=== PATIENT | female | born 1965 | race Caucasian/White ===

== ENCOUNTER 2020-04-02 22:48 | Inpatient (IN) ==
[2020-04-02] MEDS ORDERED: SODIUM CHLORIDE 0.9% 1000ML 1,000 ML IV ONE ×2 (23:05→23:48)
--- NOTE | 2020-04-02 23:10 | Emergency Department Note ---
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 Was feeling better this evening other than continued diarrhea when she had syncopal event. Notes nausea and weakness after passing out. Lip laceration noted and some ri ght foot pain though no other overt injuries. She is hypotensive (SBP 60s) on arrival and recheck. Given 2 L NSS bolus with vast improvement in BP. With recent surgery and hospitalization, along with travel and her grandfather having PEs, dimer obtained despite no sob/cp. Dimer positive thus CT PE of chest done along with Head (for syncope) and Abdomen/Pelvis (hypotensive with recent viscous perforation). These imaging studies fortunately unremarkable. Labs with hypokalemia as well which repletion started in ED. Lip laceration mild and right along norma boarder which was amenable to dermabond (sutures would have caused more scarring than just using dermabond). Inner lip laceration is not through and through and does not require sutures. No jaw pain nor evidence of need for facial imaging at this time. Right foot xrays without evidence acute fracture. Suspect syncope secondary to dehydration from diarrhea she has been having which likely is also cause of HypoK. She does look much better but in setting of significant hypotension on arrival and lab findings I do feel she would benefit from monitoring further in hospital. Patient does have some anterior t wave inversions and st depressions new from recent EKG as well which I suspect may have been hypotensive related as no chest pain. Initial trop at this time negative.. Prior Medical Record and Triage/Nursing Notes reviewed by Me Additional history obtained from chart Differentials:Vasovagal event, dehydration, infection, hypoglycemia, electrolyte abnormalities, cardiac sources, intracerebral event, pulmonary embolism, seizure, toxicologic, neurologic, as well as other pathologies. Vital Signs: reviewed and remarkable for hypotension Interventions: Saline Lock, NSS bolus 2L IV, KCl 20meq IV Labs:Reviewed and remarkable for hypoK, elevated Dimer Imaging:X ray results are stated below per my interpretation: Chest: 1 view: No infiltrate, no effusion, normal cardiac border. Foot Right: 3 view: recalcification of previous fractures with pin mid/distal 1st metatarsal. Ankle hardware intact. No over fracture nor dislocation [facility] Radiologist interpretation reviewed by me: ct head wo con, ct chest pe study, ct a/p w IV con: No acute findings. Post op finding noted. No PE. EKG:Per My Interpretation: Indication Syncope: NSR 87 bpm, qtc 428. There are new ST depressions/T wave inversions anteriorly compared to last week EKG. No Ectopy. Compared to EKG 03/27/20. Cardiac/Tele Monitoring: Cardiac Monitoring: An Order was placed for continuous cardiac monitoring. The monitor shows a rate of 80 with a normal sinus rhythm. Consults:Dr Brijesh MYLES Hospitalist Plan: Disposition:Hospitalization. Condition: Good Prescriptions:none PDMP: n/a History of Present Illness:54 yr old female arrives for evaluation of syncope. Patient with gastric sleeve done on 02/21/20 [facility]. Was having significant nausea, vomiting, diarrhea 1 week and seen in ED here, given IV fluids with improvement and discharged to home. Was seen at [place] next day and briefly hospitalized for IV abx due to perforation, concern colon as source rather than surgical site. She notes she has been on Augmentin since doing well. Has been having daily diarrhea but no nausea, vomiting, nor other symptoms. This evening she got up from chair and as she was walking she passed out. Struck lip on fall. Notes nausea after this. Currently she feels weak without specific symptoms. Notes some mild nausea, exhaustion, and abdominal soreness. Denies fevers, chills, cough, vomiting, headache, neck pain, chest pain, shortness of breath, dyspnea, pleuritic pain, leg swelling, calf pain. No medications taken prior to arrival. Admits lightheaded with standing. Better with sitting. ROS: See above HPI for pertinent positives & negatives. A total of 10 systems reviewed and were otherwise negative. Past Medical History:Depression, GERD, migraine Past Surgical History:Gastric Band surgery Family History:Grandfather PE Social History:From [place] currently living with parents to care for them, no drugs, no smoking Home Medications:Escitalopram, oxcarbazepine, pantoprazole, topiramate Allergies:Depakote Vitals:Blood Pressure: 109/68, Pulse 81, RR 18, T 35.9C, O2 99% on RA Physical Exam: GENERAL: Patient is tired appearing and in mild distress. HEAD: AT/NC FACE: Lower lip laceration along vermilion border about 1cm with small area just beyond supericial. Inner left lower lip laceration without through-through lac EYES: No scleral icterus, unremarkable pupils. ENT: Mucous membranes moist, no nasal congestion. NECK: No masses appreciated, nomeningismus, trachea is midline. No cervical TTP RESPIRATORY: No dyspnea. Clear to auscultation and equal bilaterally. No wheeze, no rhonchi. CARDIOVASCULAR: Regular rate and rhythm.No murmurs, rubs, gallops appreciated. GASTROINTESTINAL: Abdomen soft, non-tender, no peritonitis.Bowel sounds positive.No masses appreciated. BACK: No midline tenderness, no CVA tenderness EXTREMITIES: Normal motion all extremities, no cyanosis, no edema. NEUROLOGIC: Alert and oriented, no acute motor or sensory deficits, no focal weakness, cranial nerves grossly intact. SKIN: No rash, no jaundice, no diaphoresis. PSYCH: Appropriate GCS: 15 ED Course: Times/Reassessments: Much improved with IV fluids Procedures: Laceration Repair: Location: left lower lip norma boarder Complexity: Simple Length: 1.5 cm Verbal consent was obtained after the risks and benefits were explained, including but not limited to bleeding, scarring, infection, pain, and bone/joint/nerve damage. At this time, the risks of the procedure are less than the risks of NOT performing the procedure. A time out was taken and the correct patient and site identified. The skin was prepped with betadine. The wound was explored for foreign bodies and none found. Examination revealed no injury to deep structures such as tendons, bone, or significant blood vessels. Debridement was not performed. The wound edges were approximated using DERMABOND. Hemostasis and excellent approximation was achieved. Detailed wound care instructions and signs and symptoms of infection reviewed with the patient. No complications and the patient tolerated the procedure well. I personally performed the entire procedure. Critical Care: I have personally spent 30 minutes of critical care time in the direct management of this patient. Acute hypotension with syncope requiring fluid resus. This was a life/limb threatening event. This 30 minutes is in excess of all separately billable procedures. Maco Ashford MD Past Med/Surg History Medical History No pertinent past medical history Social History Smoking Status: Never smoker Preferred Language: Cypriot Feels Safe at Home: Yes Allergies Allergies Allergy/AdvReac Type Severity Reaction Status Date / Time divalproex sodium Allergy Hives Unverified 03/27/20 17:38 [From Depakote] Home Meds Home Medications Medication Instructions Recorded Confirmed calcium carbonate-vitamin D3 1 tab PO BID 03/27/20 04/02/20 [Calcium + D] escitalopram oxalate 20 mg PO HS 03/27/20 04/02/20 multivitamin [Multiple Vitamin] 1 tab PO DAILY 03/27/20 04/02/20 oxcarbazepine 450 mg PO BID 03/27/20 04/02/20 pantoprazole 40 mg PO DAILY 03/27/20 04/02/20 topiramate 400 mg PO HS 03/27/20 04/02/20 cyanocobalamin (vitamin B-12) 1,000 mcg PO DAILY 04/02/20 04/02/20 [Vitamin B-12] Results & Data (ED) Vital Signs Vital Signs - 24 hr 04/02/20 22:50 04/02/20 23:00 04/02/20 23:09 Temperature 35.9 C L Temperature Source Temporal Artery Scan Pulse Rate 100 H 83 72 Pulse Rate from SpO2 Sensor 84 73 Respiratory Rate 20 18 19 Respiratory Effort / Characteristics Non-Labored Spontaneous Respiratory Depth Normal Respiratory Pattern Regular Blood Pressure 67/50 L 88/64 L 84/63 L Blood Pressure [Right Arm] 88/64 L Blood Pressure Mean 55 77 69 Blood Pressure Mean [Right Arm] 72 Blood Pressure Position Sitting Blood Pressure Position [Right Arm] Lying Pulse Oximetry 98 98 97 Oxygen Delivery Method Room Air Sepsis Recent Fever Within 48 Hours No Sepsis New/Unexplained Change in Mental Status No Sepsis Action Taken by Nursing Physician Notified 04/02/20 23:15 04/02/20 23:30 04/02/20 23:45 Temperature Temperature Source Pulse Rate 75 71 69 Pulse Rate from SpO2 Sensor 70 71 72 Respiratory Rate 15 16 16 Respiratory Effort / Characteristics Respiratory Depth Respiratory Pattern Blood Pressure 92/61 L 105/72 103/65 Blood Pressure [Right Arm] Blood Pressure Mean 70 82 68 Blood Pressure Mean [Right Arm] Blood Pressure Position Blood Pressure Position [Right Arm] Pulse Oximetry 96 99 99 Oxygen Delivery Method Sepsis Recent Fever Within 48 Hours Sepsis New/Unexplained Change in Mental Status Sepsis Action Taken by Nursing 04/03/20 00:00 04/03/20 00:27 04/03/20 00:29 Temperature Temperature Source Pulse Rate 80 Pulse Rate from SpO2 Sensor 81 Respiratory Rate 51 H 12 Respiratory Effort / Characteristics Respiratory Depth Respiratory Pattern Blood Pressure 124/75 104/75 Blood Pressure [Right Arm] Blood Pressure Mean 94 83 Blood Pressure Mean [Right Arm] Blood Pressure Position Blood Pressure Position [Right Arm] Pulse Oximetry 99 Oxygen Delivery Method Sepsis Recent Fever Within 48 Hours Sepsis New/Unexplained Change in Mental Status Sepsis Action Taken by Nursing 04/03/20 00:30 04/03/20 00:46 04/03/20 01:15 Temperature Temperature Source Pulse Rate 80 72 81 Pulse Rate from SpO2 Sensor 81 72 81 Respiratory Rate 20 16 16 Respiratory Effort / Characteristics Respiratory Depth Respiratory Pattern Blood Pressure 109/63 111/73 Blood Pressure [Right Arm] Blood Pressure Mean 70 87 Blood Pressure Mean [Right Arm] Blood Pressure Position Blood Pressure Position [Right Arm] Pulse Oximetry 99 98 99 Oxygen Delivery Method Sepsis Recent Fever Within 48 Hours Sepsis New/Unexplained Change in Mental Status Sepsis Action Taken by Nursing 04/03/20 01:47 04/03/20 02:00 04/03/20 02:15 Temperature Temperature Source Pulse Rate Pulse Rate from SpO2 Sensor 73 75 73 Respiratory Rate Respiratory Effort / Characteristics Respiratory Depth Respiratory Pattern Blood Pressure 107/61 104/68 104/72 Blood Pressure [Right Arm] Blood Pressure Mean 62 82 81 Blood Pressure Mean [Right Arm] Blood Pressure Position Blood Pressure Position [Right Arm] Pulse Oximetry 99 98 99 Oxygen Delivery Method Sepsis Recent Fever Within 48 Hours Sepsis New/Unexplained Change in Mental Status Sepsis Action Taken by Nursing Laboratory Data Result diagrams: 04/02/20 23:09 04/02/20 23:09 Lab Results 04/02/20 04/02/20 04/02/20 Range/Units 23:09 23:09 23:09 WBC 11.52 H (4.8-10.8) K/uL RBC 4.57 (4.2-5.4) M/uL Hgb 13.8 (12.0-16.0) g/dL Hct 39.5 (37-47) % MCV 86.4 (80-100) fL MCH 30.2 (25-34) pg MCHC 34.9 (32-36) g/dL RDW Std Deviation 41.9 (36.4-46.3) fL RDW Coeff of Jasbir 13.3 (11.5-14.5) % Plt Count 234 (130-400) K/uL MPV 9.2 (7.4-10.4) fL Neutrophils % (Manual) 35.7 % Lymphocytes % (Manual) 43.4 % Monocytes % (Manual) 2.6 % Neutrophils # (Manual) 4.11 (1.4-6.5) K/uL Total Absolute Neuts 4.11 (1.4-6.5) K/uL Lymphocytes # (Manual) 5.00 H (1.2-3.4) K/uL Total Abs Lymphocytes 7.11 H (1.2-3.4) K/uL Monocytes # (Manual) 0.30 (0.11-0.59) K/uL Large Granular Lymphs 18.3 % # Lrg Granular Lymphs 2.11 K/uL RBC Morphology Unremarkable D-Dimer 1510 H* (0-500) ug/L FEU Sodium (136-145) mmol/L Potassium (3.5-5.1) mmol/L Chloride (98-107) mmol/L Carbon Dioxide (21-32) mmol/L Anion Gap (3-11) BUN (7-18) mg/dl Creatinine (0.6-1.2) mg/dl Est Cr Clr Drug Dosing ml/min Est GFR ( Amer) Est GFR (Non-Af Amer) BUN/Creatinine Ratio (10-20) Glucose (70-99) mg/dl Lactate 2.5 H* (0.4-2.0) mmol/L Calcium (8.5-10.1) mg/dl Magnesium (1.8-2.4) mg/dl Total Bilirubin (0.2-1) mg/dl Direct Bilirubin (0-0.2) mg/dl AST (15-37) U/L ALT (12-78) U/L Alkaline Phosphatase (45-117) U/L Troponin I (0-0.045) ng/ml Total Protein (6.4-8.2) gm/dl Albumin (3.4-5.0) gm/dl Lipase (73-393) U/L Urine Color Urine Appearance (Clear) Urine pH (4.5-7.5) Ur Specific [place] (1.000-1.030) Urine Protein (Negative) Urine Glucose (UA) (Negative) Urine Ketones (Negative) Urine Blood (Negative) Urine Nitrite (Negative) Urine Bilirubin (Negative) Urine Urobilinogen (Negative) Ur Leukocyte Esterase (Negative) COVID-19 Eval Order SARS-CoV-2, RNA, NAAT (NEGATIVE) 04/02/20 04/03/20 04/03/20 Range/Units 23:09 00:00 00:00 WBC (4.8-10.8) K/uL RBC (4.2-5.4) M/uL Hgb (12.0-16.0) g/dL Hct (37-47) % MCV (80-100) fL MCH (25-34) pg MCHC (32-36) g/dL RDW Std Deviation (36.4-46.3) fL RDW Coeff of Jasbir (11.5-14.5) % Plt Count (130-400) K/uL MPV (7.4-10.4) fL Neutrophils % (Manual) % Lymphocytes % (Manual) % Monocytes % (Manual) % Neutrophils # (Manual) (1.4-6.5) K/uL Total Absolute Neuts (1.4-6.5) K/uL Lymphocytes # (Manual) (1.2-3.4) K/uL Total Abs Lymphocytes (1.2-3.4) K/uL Monocytes # (Manual) (0.11-0.59) K/uL Large Granular Lymphs % # Lrg Granular Lymphs K/uL RBC Morphology D-Dimer (0-500) ug/L FEU Sodium 143 (136-145) mmol/L Potassium 2.9 L (3.5-5.1) mmol/L Chloride 110 H (98-107) mmol/L Carbon Dioxide 21 (21-32) mmol/L Anion Gap 11.0 (3-11) BUN 17 (7-18) mg/dl Creatinine 0.90 (0.6-1.2) mg/dl Est Cr Clr Drug Dosing 78.6 ml/min Est GFR ( Amer) 84.6 Est GFR (Non-Af Amer) 73.0 BUN/Creatinine Ratio 18.3 (10-20) Glucose 147 H (70-99) mg/dl Lactate (0.4-2.0) mmol/L Calcium 9.2 (8.5-10.1) mg/dl Magnesium 2.0 (1.8-2.4) mg/dl Total Bilirubin 0.4 (0.2-1) mg/dl Direct Bilirubin 0.1 (0-0.2) mg/dl AST 42 H (15-37) U/L ALT 51 (12-78) U/L Alkaline Phosphatase 111 (45-117) U/L Troponin I < 0.015 (0-0.045) ng/ml Total Protein 6.8 (6.4-8.2) gm/dl Albumin 3.6 (3.4-5.0) gm/dl Lipase 164 (73-393) U/L Urine Color Urine Appearance (Clear) Urine pH (4.5-7.5) Ur Specific [place] (1.000-1.030) Urine Protein (Negative) Urine Glucose (UA) (Negative) Urine Ketones (Negative) Urine Blood (Negative) Urine Nitrite (Negative) Urine Bilirubin (Negative) Urine Urobilinogen (Negative) Ur Leukocyte Esterase (Negative) COVID-19 Eval Order Covid19 IDNow atMKYC SARS-CoV-2, RNA, NAAT NEGATIVE (NEGATIVE) 04/03/20 04/03/20 Range/Units 00:52 01:50 WBC (4.8-10.8) K/uL RBC (4.2-5.4) M/uL Hgb (12.0-16.0) g/dL Hct (37-47) % MCV (80-100) fL MCH (25-34) pg MCHC (32-36) g/dL RDW Std Deviation (36.4-46.3) fL RDW Coeff of Jasbir (11.5-14.5) % Plt Count (130-400) K/uL MPV (7.4-10.4) fL Neutrophils % (Manual) % Lymphocytes % (Manual) % Monocytes % (Manual) % Neutrophils # (Manual) (1.4-6.5) K/uL Total Absolute Neuts (1.4-6.5) K/uL Lymphocytes # (Manual) (1.2-3.4) K/uL Total Abs Lymphocytes (1.2-3.4) K/uL Monocytes # (Manual) (0.11-0.59) K/uL Large Granular Lymphs % # Lrg Granular Lymphs K/uL RBC Morphology D-Dimer (0-500) ug/L FEU Sodium (136-145) mmol/L Potassium (3.5-5.1) mmol/L Chloride (98-107) mmol/L Carbon Dioxide (21-32) mmol/L Anion Gap (3-11) BUN (7-18) mg/dl Creatinine (0.6-1.2) mg/dl Est Cr Clr Drug Dosing ml/min Est GFR ( Amer) Est GFR (Non-Af Amer) BUN/Creatinine Ratio (10-20) Glucose (70-99) mg/dl Lactate 1.6 (0.4-2.0) mmol/L Calcium (8.5-10.1) mg/dl Magnesium (1.8-2.4) mg/dl Total Bilirubin (0.2-1) mg/dl Direct Bilirubin (0-0.2) mg/dl AST (15-37) U/L ALT (12-78) U/L Alkaline Phosphatase (45-117) U/L Troponin I (0-0.045) ng/ml Total Protein (6.4-8.2) gm/dl Albumin (3.4-5.0) gm/dl Lipase (73-393) U/L Urine Color Yellow Urine Appearance Clear (Clear) Urine pH 7.0 (4.5-7.5) Ur Specific [place] 1.041 H (1.000-1.030) Urine Protein Negative (Negative) Urine Glucose (UA) Negative (Negative) Urine Ketones Trace H (Negative) Urine Blood Negative (Negative) Urine Nitrite Negative (Negative) Urine Bilirubin Negative (Negative) Urine Urobilinogen Negative (Negative) Ur Leukocyte Esterase Negative (Negative) COVID-19 Eval Order SARS-CoV-2, RNA, NAAT (NEGATIVE) Administered Medications Sodium Chloride (Nss 1000ml) 1,000 mls @ 125 mls/hr IV .Q8H JOSE ANTONIO Stop: 05/03/20 00:59 Last Admin: 04/03/20 01:50 Dose: 125 mls/hr Documented by: [id number] Discontinued Medications Sodium Chloride (Nss 1000ml) 1,000 mls @ 999 mls/hr IV .Q1H1M ONE Stop: 04/03/20 00:05 Last Infusion: 04/03/20 00:53 Dose: 0 mls/hr Documented by: [id number] Admin: 04/02/20 23:15 Dose: 999 mls/hr Documented by: [id number] Sodium Chloride (Nss 1000ml) 1,000 mls @ 999 mls/hr IV .Q1H1M ONE Stop: 04/03/20 00:48 Last Infusion: 04/03/20 00:59 Dose: 0 mls/hr Documented by: [id number] Admin: 04/02/20 23:51 Dose: 999 mls/hr Documented by: [id number] Potassium Chloride (K Gomez / Wtr) 10 meq in 100 mls @ 100 mls/hr IV Q1H [facility] Stop: 04/03/20 02:59 Last Admin: 04/03/20 01:50 Dose: 100 mls/hr Documented by: [id number] Ioversol (Optiray 320 125ml) 125 ml IV ONCE ONE Stop: 04/03/20 00:43 Last Admin: 04/03/20 00:42 Dose: 118 ml Documented by: [id number] Discharge Plan Visit Data Chief Complaint: Syncope Stated Complaint: PASSED OUT-CUT [id number] FOOT PAIN ED Provider: Maco Ashford Discharge Problem: Acute hypotension, Elevated d-dimer, Syncope and collapse, Laceration of lip, Acute dehydration, Acute hypokalemia, Abnormal ECG Forms Stand Alone Forms: [facility] Prescriptions Prescriptions: No Action escitalopram oxalate 20 mg tablet 20 mg PO HS RF: 0 topiramate 200 mg tablet 400 mg PO HS RF: 0 multivitamin [Multiple Vitamin] Tablet 1 tab PO DAILY RF: 0 calcium carbonate-vitamin D3 [Calcium + D] 600 mg(1,500mg) -200 unit Tablet 1 tab PO BID RF: 0 pantoprazole 40 mg tablet,delayed release (DR/EC) 40 mg PO DAILY RF: 0 oxcarbazepine 150 mg tablet 450 mg PO BID RF: 0 cyanocobalamin (vitamin B-12) [Vitamin B-12] 1,000 mcg Tablet 1,000 mcg PO DAILY RF: 0
[2020-04-02 23:19] LABS: Hematocrit (blood only) 39.5 % (37-47); Hemoglobin 13.8 g/dL (12.0-16.0); Mean Corpuscular Hemoglobin 30.2 pg (25-34); Mean Corpuscular Hgb Conc 34.9 g/dL (32-36); Mean Corpuscular Volume 86.4 fL (80-100); Mean Platelet Volume 9.2 fL (7.4-10.4); Platelet Count 234 K/uL (130-400); RDW Coefficient of Variation 13.3 % (11.5-14.5); RDW Standard Deviation 41.9 fL (36.4-46.3); Red Blood Count 4.57 M/uL (4.2-5.4); White Blood Count 11.52 K/uL (4.8-10.8)
[2020-04-02 23:39] LABS: Alanine Aminotransferase 51 U/L (12-78); Albumin Level 3.6 gm/dl (3.4-5.0); Aspartate Aminotransferase 42 U/L (15-37); BUN Creatinine Ratio 18.3 (10-20); Bilirubin Direct 0.1 mg/dl (0-0.2); Blood Urea Nitrogen 17 mg/dl (7-18); Calcium 9.2 mg/dl (8.5-10.1); Carbon Dioxide 21 mmol/L (21-32); Chloride 110 mmol/L (98-107); Creatinine Clr Calc Pharmacy 78.6 ml/min; Est GFR (African American) 84.6; Glucose 147 mg/dl (70-99); Lipase 164 U/L (73-393); Potassium 2.9 mmol/L (3.5-5.1); Sodium 143 mmol/L (136-145)
[2020-04-02 23:44] LABS: Alkaline Phosphatase 111 U/L (45-117); Bilirubin,Total 0.4 mg/dl (0.2-1); Total Protein 6.8 gm/dl (6.4-8.2); Troponin I < 0.015 ng/ml (0-0.045)
[2020-04-02 23:47] LABS: ALC (manual) 7.11 K/uL (1.2-3.4); ANC (manual) 4.11 K/uL (1.4-6.5); Large Granular Lymph # (manua 2.11 K/uL; Large Granular Lymph % (manual) 18.3 %; Lymphocytes % (manual) 43.4 %; Monocytes % (manual) 2.6 %; Neutrophils # (manual) 4.11 K/uL (1.4-6.5); Neutrophils % (manual) 35.7 %; RBC Morphology Unremarkable
[2020-04-02 23:48] LABS: D Dimer 1510 ug/L FEU (0-500)
[2020-04-03] MEDS ORDERED: OPTIRAY 320 125ml IV ONE (00:42)
[2020-04-03] MEDS: POTASSIUM CHLORIDE / WTR 10 MEQ/100 ML PLCT IV SCH ×2 (01:50→03:49)
[2020-04-03] MEDS: SODIUM CHLORIDE 0.9% 1000ML 1,000 ML IV SCH ×3 (01:50→19:02)
[2020-04-03 02:27] LABS: Appearance Urine Clear (Clear); Bilirubin Urine Negative (Negative); Blood Urine Negative (Negative); Color Urine Yellow; Glucose Urine UA Negative (Negative); Ketones Urine Trace (Negative); Leukocyte Esterase Urine Negative (Negative); Nitrite Urine Negative (Negative); Protein Urine Negative (Negative); Specific Gravity Urine 1.041 (1.000-1.030); Urobilinogen Urine Negative (Negative)
--- NOTE | 2020-04-03 03:11 | History & Physical Report ---
Date of Service April 03, 2020 Assessment & Plan (1) Syncope: Mrs. Rhodes is a 54 yo woman who underwent laparoscopic sleeve gastrectomy on 02/21/20 at [facility], who was admitted with a syncopal episode. - as for the etiology of syncope: cardiogenic etiology seems unlikely as setting was not consistent with exertion; no associated CP or palpations. EKG on admission showing NRS at 84 bpm. - neurogenic very rare, no report of seizure like activity - reflex mediated seems unlikely given lack of a prodrome;patient was brushing teeth at the time (no urinating or defecating), no cough - medication induced seems unlikely has patient is not on any anti-hypertensive; no anti-anginals. EKG without QTc prolongation. - hypotension/orthostasis is possibility, as patient reported daily diarrhea (volume loss); BP soft on arrival at 104/72 - patient given 1 liter of IV fluid in ED. - continuos manager cardiac cath (to assess for any potential intermittent arrhythmia) - obtain orthostatic vitals (2) Diarrhea: - patient reports daily watery diarrhea since 03/27/20 - stool reportedly tested negative for C.diff when recently admitted at [facility] - initial thought of being induced by IV contrast, however it has persisted days beyond contrast intake - suspect secondary to early gastric dumping syndrome (osmotic fluid shifts into small bowel) - continue to monitor Patient reports that this is slowly improving (3) Hypokalemia: - K at 2.7 on admission - mag level normal - patient given 10meQ IV in the ED - ordered additional 40meQ IV and 40 PO potassium chloride - repeat BMP ordered (4) Leukocytosis: - WBC elevated to 11 on admission with lymphocytosis - it was elevated to the same degree on 03/27/20 - secondary to physiology stress response vs. infection - CXR negative for acute consolidation; COVID 19 neg; A/p CT scan showing no evidence of abscess or fluid collection - patient is on Augmentin for presumed colonic microperforation (noted on CT scan 03/27/20). Continue Augmentin while inpatient (on day 3 of 14) - hemodynamically stable, SIRS criteria not met - trend CBC (5) Elevated d-dimer: - level elevated to 1510 on admission - Chest CTA negative for acute PE (per [facility]); official read pending - no further work up (6) GERD (gastroesophageal reflux disease): - continue home dose protonix (7) Depression: - continue home dose escitalopram (8) S/P gastric surgery: - s/p gastric sleeve on 02/21/20 at [facility] Diet: Bariatric DVT ppx: SCDs Dispo: Med/Surg with tele Code: full History of Present Illness Primary Care Provider: DIMITRIS Puentes Mrs. Rhodes is a 54 yo F who presented to the ED for evaluation after a syncopal episode. Of note, she recently underwent laparoscopic gastric sleeve procedure on 02/21/20 at [facility]. For the first 2.5 weeks after the surgery, she had no issues; she progressed through her bariatric diet well. Subsequently, she began to develop intermittent abdominal pain and nausea. On 03/27/20 she presented to the [facility] ED for evaluation of nausea/vomiting, and watery diarrhea. A CT scan of her abdomen and pelvis was obtained at this time, which showed gas in the colon, suspected to be from recent laparoscopic procedure vs. consistent with a microperforation. Patient improved with IV hydration and was sent home from the ED, directed to follow up with her bariatric surgeon. The very next day, 03/28/20 she traveled to [place] to see her bariatric surgeon, at which time she was briefly hospitalized for IV antibiotics (in the event the air visualized in the large bowel from CT scan performed here on 03/27/20 represented a perforation). She was discharged on 03/31/20 from [facility] with a two week course of Augmentin. Mrs. Rhodes reports that ever since she presented on 03/27/20 she has been having watery diarrhea on a daily basis. Her surgeon initially thought it was from the IV contrast she drank before her A/P CT scan on 03/27/20- however it has persisted long after its use. Mrs. Rhodes does say that her stool was tested for c.diff while admitted to [facility] this past week and returned negative. Prior to her admission during the early hours of 04/03/19, she was actually beginning to feel better. Her nausea and vomiting resolved, she was tolerating PO intake well. She was seated in a recliner after dinner - she stood up, walked to the bathroom, and attempted to brush her teeth. Mrs. Rhodes reports she must have passed out because her daughter found her lying on the bathroom floor. She does report feeling somewhat lightheaded as she walked down the blount to the bathroom, but she denies any chest pain, SOB, palpitations, or greying of vision preceding her fall. In fact, she does not remember falling - she just remembers waking up on the ground. She had a cut on her lip - she says she must have struck her face on her bathroom vanity when falling. She is not on a blood thinner. She is not on any blood pressure medications at this time - they were discontinued within the past month. She denied any associated cold symptoms, fever/chills. Patient is concerned about her R foot (and potential damage it may have sustained in her fall), as she had hardware placed during an operation this past summer. In the ED: patient was afebrile, HR normal at 81, BP soft at 104/72. WBC elevated mildly to 11 with lymphocytosis. Hgb normal. CMP notable for low K at 2.7. D-dimer was elevated to 1510. Lactate was elevated to 2.4 on arrival, cleared to 1.6. Lipase normal at 164. Trop undetectable. COVID 19 neg. EKG showing NSR at 84 bpm. CXR showing no acute process (official read pending). Head CT negative for acute bleed or fracture (official read pending). R foot XR ordered. A/P CT scan showing no abscess or fluid collection; expected pos- operative changes (official read pending). Chest CTA negative for acute PE (official read pending). She was given 10meQ potassium chloride and 1 liter of normal saline. Allergies Allergy/AdvReac Type Severity Reaction Status Date / Time divalproex sodium Allergy Hives Unverified 03/27/20 17:38 [From Depakote] Home Medications Medication Instructions Recorded Confirmed Type calcium carbonate-vitamin D3 1 tab PO BID 03/27/20 04/02/20 History [Calcium + D] escitalopram oxalate 20 mg PO HS 03/27/20 04/02/20 History multivitamin [Multiple Vitamin] 1 tab PO DAILY 03/27/20 04/02/20 History oxcarbazepine 450 mg PO BID 03/27/20 04/02/20 History pantoprazole 40 mg PO DAILY 03/27/20 04/02/20 History topiramate 400 mg PO HS 03/27/20 04/02/20 History cyanocobalamin (vitamin B-12) 1,000 mcg PO DAILY 04/02/20 04/02/20 History [Vitamin B-12] Past Med/Surg History Medical History (Updated 04/03/20 @ 03:40 by Linda Sandhu MD) No pertinent past medical history Surgical History (Updated 04/03/20 @ 04:27 by Elvi Coley DO) History of bariatric surgery Gastric Sleeve Social History Smoking Status: Never smoker Preferred Language: Polish Feels Safe at Home: Yes Review of Systems Cardiovascular: no chest pain, no dyspnea and no palpitations Gastrointestinal: + diarrhea/loose stools; no abdominal pain, no nausea and no vomiting Neurologic: + headache(s) Physical Exam Constitutional: WD/WN, vitals as above cooperative and comfortable Eyes: + anicteric sclerae ENMT: external ear and nose normal, oropharynx normal Neck: normal visual inspection and trachea midline Respiratory: normal respiratory effort, lungs clear to auscultation no respiratory distress Auscultation: no crackles, no rales, no rhonchi and no wheezes Cardiovascular: RRR, no murmur, no edema Heart Sounds: normal S1 and normal S2 Extremities: no pedal edema Gastrointestinal (Abdomen): normal bowel sounds, soft, nontender, no hepatosplenomegaly Inspection/Auscultation: + abdominal surgical scar (consistent with recent laproscopic surgery; well healed) Skin: no rashes, warm and dry Psychiatric: A+Ox3, euthymic affect Results & Data Results & Data ([facility]) Vital Signs (Past 12 Hours) Vital Signs Temp Pulse Resp BP BP Pulse Ox 04/03/20 02:15 104/72 99 04/03/20 02:00 104/68 98 04/03/20 01:47 107/61 99 04/03/20 01:15 81 16 111/73 99 04/03/20 00:46 72 16 109/63 98 04/03/20 00:30 80 20 99 04/03/20 00:29 80 12 104/75 99 04/03/20 00:27 51 H 01/18/21 00:00 124/75 04/02/20 23:45 69 16 103/65 99 04/02/20 23:30 71 16 105/72 99 04/02/20 23:15 75 15 92/61 L 96 04/02/20 23:09 72 19 84/63 L 97 04/02/20 23:00 83 18 88/64 L 88/64 L 98 04/02/20 22:50 35.9 C L 100 H 20 67/50 L 98 Laboratory Results Lab Results 04/02/20 04/02/20 04/02/20 Range/Units 23:09 23:09 23:09 WBC 11.52 H (4.8-10.8) K/uL RBC 4.57 (4.2-5.4) M/uL Hgb 13.8 (12.0-16.0) g/dL Hct 39.5 (37-47) % MCV 86.4 (80-100) fL MCH 30.2 (25-34) pg MCHC 34.9 (32-36) g/dL RDW Std Deviation 41.9 (36.4-46.3) fL RDW Coeff of Jasbir 13.3 (11.5-14.5) % Plt Count 234 (130-400) K/uL MPV 9.2 (7.4-10.4) fL Neutrophils % (Manual) 35.7 % Lymphocytes % (Manual) 43.4 % Monocytes % (Manual) 2.6 % Neutrophils # (Manual) 4.11 (1.4-6.5) K/uL Total Absolute Neuts 4.11 (1.4-6.5) K/uL Lymphocytes # (Manual) 5.00 H (1.2-3.4) K/uL Total Abs Lymphocytes 7.11 H (1.2-3.4) K/uL Monocytes # (Manual) 0.30 (0.11-0.59) K/uL Large Granular Lymphs 18.3 % # Lrg Granular Lymphs 2.11 K/uL RBC Morphology Unremarkable D-Dimer 1510 H* (0-500) ug/L FEU Sodium (136-145) mmol/L Potassium (3.5-5.1) mmol/L Chloride (98-107) mmol/L Carbon Dioxide (21-32) mmol/L Anion Gap (3-11) BUN (7-18) mg/dl Creatinine (0.6-1.2) mg/dl Est Cr Clr Drug Dosing ml/min Est GFR ( Amer) Est GFR (Non-Af Amer) BUN/Creatinine Ratio (10-20) Glucose (70-99) mg/dl Lactate 2.5 H* (0.4-2.0) mmol/L Calcium (8.5-10.1) mg/dl Magnesium (1.8-2.4) mg/dl Total Bilirubin (0.2-1) mg/dl Direct Bilirubin (0-0.2) mg/dl AST (15-37) U/L ALT (12-78) U/L Alkaline Phosphatase (45-117) U/L Troponin I (0-0.045) ng/ml Total Protein (6.4-8.2) gm/dl Albumin (3.4-5.0) gm/dl Lipase (73-393) U/L Urine Color Urine Appearance (Clear) Urine pH (4.5-7.5) Ur Specific [place] (1.000-1.030) Urine Protein (Negative) Urine Glucose (UA) (Negative) Urine Ketones (Negative) Urine Blood (Negative) Urine Nitrite (Negative) Urine Bilirubin (Negative) Urine Urobilinogen (Negative) Ur Leukocyte Esterase (Negative) COVID-19 Eval Order SARS-CoV-2, RNA, NAAT (NEGATIVE) 04/02/20 04/03/20 04/03/20 Range/Units 23:09 00:00 00:00 WBC (4.8-10.8) K/uL RBC (4.2-5.4) M/uL Hgb (12.0-16.0) g/dL Hct (37-47) % MCV (80-100) fL MCH (25-34) pg MCHC (32-36) g/dL RDW Std Deviation (36.4-46.3) fL RDW Coeff of Jasbir (11.5-14.5) % Plt Count (130-400) K/uL MPV (7.4-10.4) fL Neutrophils % (Manual) % Lymphocytes % (Manual) % Monocytes % (Manual) % Neutrophils # (Manual) (1.4-6.5) K/uL Total Absolute Neuts (1.4-6.5) K/uL Lymphocytes # (Manual) (1.2-3.4) K/uL Total Abs Lymphocytes (1.2-3.4) K/uL Monocytes # (Manual) (0.11-0.59) K/uL Large Granular Lymphs % # Lrg Granular Lymphs K/uL RBC Morphology D-Dimer (0-500) ug/L FEU Sodium 143 (136-145) mmol/L Potassium 2.9 L (3.5-5.1) mmol/L Chloride 110 H (98-107) mmol/L Carbon Dioxide 21 (21-32) mmol/L Anion Gap 11.0 (3-11) BUN 17 (7-18) mg/dl Creatinine 0.90 (0.6-1.2) mg/dl Est Cr Clr Drug Dosing 78.6 ml/min Est GFR ( Amer) 84.6 Est GFR (Non-Af Amer) 73.0 BUN/Creatinine Ratio 18.3 (10-20) Glucose 147 H (70-99) mg/dl Lactate (0.4-2.0) mmol/L Calcium 9.2 (8.5-10.1) mg/dl Magnesium 2.0 (1.8-2.4) mg/dl Total Bilirubin 0.4 (0.2-1) mg/dl Direct Bilirubin 0.1 (0-0.2) mg/dl AST 42 H (15-37) U/L ALT 51 (12-78) U/L Alkaline Phosphatase 111 (45-117) U/L Troponin I < 0.015 (0-0.045) ng/ml Total Protein 6.8 (6.4-8.2) gm/dl Albumin 3.6 (3.4-5.0) gm/dl Lipase 164 (73-393) U/L Urine Color Urine Appearance (Clear) Urine pH (4.5-7.5) Ur Specific [place] (1.000-1.030) Urine Protein (Negative) Urine Glucose (UA) (Negative) Urine Ketones (Negative) Urine Blood (Negative) Urine Nitrite (Negative) Urine Bilirubin (Negative) Urine Urobilinogen (Negative) Ur Leukocyte Esterase (Negative) COVID-19 Eval Order Covid19 [facility]Now [facility] SARS-CoV-2, RNA, NAAT NEGATIVE (NEGATIVE) 04/03/20 04/03/20 Range/Units 00:52 01:50 WBC (4.8-10.8) K/uL RBC (4.2-5.4) M/uL Hgb (12.0-16.0) g/dL Hct (37-47) % MCV (80-100) fL MCH (25-34) pg MCHC (32-36) g/dL RDW Std Deviation (36.4-46.3) fL RDW Coeff of Jasbir (11.5-14.5) % Plt Count (130-400) K/uL MPV (7.4-10.4) fL Neutrophils % (Manual) % Lymphocytes % (Manual) % Monocytes % (Manual) % Neutrophils # (Manual) (1.4-6.5) K/uL Total Absolute Neuts (1.4-6.5) K/uL Lymphocytes # (Manual) (1.2-3.4) K/uL Total Abs Lymphocytes (1.2-3.4) K/uL Monocytes # (Manual) (0.11-0.59) K/uL Large Granular Lymphs % # Lrg Granular Lymphs K/uL RBC Morphology D-Dimer (0-500) ug/L FEU Sodium (136-145) mmol/L Potassium (3.5-5.1) mmol/L Chloride (98-107) mmol/L Carbon Dioxide (21-32) mmol/L Anion Gap (3-11) BUN (7-18) mg/dl Creatinine (0.6-1.2) mg/dl Est Cr Clr Drug Dosing ml/min Est GFR ( Amer) Est GFR (Non-Af Amer) BUN/Creatinine Ratio (10-20) Glucose (70-99) mg/dl Lactate 1.6 (0.4-2.0) mmol/L Calcium (8.5-10.1) mg/dl Magnesium (1.8-2.4) mg/dl Total Bilirubin (0.2-1) mg/dl Direct Bilirubin (0-0.2) mg/dl AST (15-37) U/L ALT (12-78) U/L Alkaline Phosphatase (45-117) U/L Troponin I (0-0.045) ng/ml Total Protein (6.4-8.2) gm/dl Albumin (3.4-5.0) gm/dl Lipase (73-393) U/L Urine Color Yellow Urine Appearance Clear (Clear) Urine pH 7.0 (4.5-7.5) Ur Specific [place] 1.041 H (1.000-1.030) Urine Protein Negative (Negative) Urine Glucose (UA) Negative (Negative) Urine Ketones Trace H (Negative) Urine Blood Negative (Negative) Urine Nitrite Negative (Negative) Urine Bilirubin Negative (Negative) Urine Urobilinogen Negative (Negative) Ur Leukocyte Esterase Negative (Negative) COVID-19 Eval Order SARS-CoV-2, RNA, NAAT (NEGATIVE) Supervising Physician Co-Signing Physician Notes Patient seen and examined, chart reviewed, case discussed with Dr. Sandhu and I agree with her assessment and plan as documented above. Briefly, patient is a 54yo C female s/p gastric sleeve presenting with ongoing diarrhea, hypokalemia and syncope. Patient had a syncopal event while walking to the bathroom. +head trauma - patient hit lip off bathroom vanity On exam she is afebrile, HD stable, NAD, resting comfortably Skin - abdominal surgical sites well healing, no bleeding/drainage/erythema HEENT - NC/AT, PERRL, EOMI, Neck Supple Heart - +S1/S2, regular, no m/r/g Lungs - CTA Abd - +BS, soft, NT/ND Ext - No edema Labs and images reviewed Assessment/Plan - 54yo C female s/p gastric sleeve with ongoing diarrhea, hypokalemia, syncope. Suspect volume depletion, possible orthostatic syncope -Telemetry monitoring -Check orthostatic VS -IVF and K repletion -Remainder of plan as above Resident Activity Tracking Resident Involvement: Resident Care Provided Care Provided: Adult Hospital Medicine
--- NOTE | 2020-04-03 04:34 | Billing Data ---
Date of Service April 03, 2020 Coding Level of Care Code 70118 OBS Care - Level 3
[2020-04-03] MEDS ORDERED: POTASSIUM PHOS 3 MMOL/1 ML INFUSION IV STA (04:58)
[2020-04-03] MEDS ORDERED: POTASSIUM CHLORIDE CRTAB 20 MEQ TABCR PO STA (04:58)
[2020-04-03] MEDS: ACETAMINOPHEN 325 MG TAB PO PRN ×2 (05:07→15:38)
[2020-04-03] MEDS ORDERED: POTASSIUM PHOSPHATE 40 MMOL in SODIUM CHLORIDE 0.9% 1000ML 1,000 ML IV ONE (05:15)
--- NOTE | 2020-04-03 06:42 | XRay Report ---
XR foot RT min 3V routine HISTORY: 54 years-old Female right mid medial foot pain s/p fall acute right foot pain status post f all COMPARISON: None TECHNIQUE: 3 views of the right foot FINDINGS: Postoperative changes suggestive of prior bunionectomy. Cannulated screw is noted within the mid shaf t of the first metatarsal. Multifocal osteoarthritis, mild to moderate within the first MTP joint wit h mild hallux valgus. Mild soft tissue prominence of the forefoot. There is an acute appearing mildly comminuted fracture involving the first proximal phalanx with intra-articular extension and slight c ortical depression. Mild cortical buckling/angulation. ORIF hardware of the distal fibula. Spurring o f the calcaneus. IMPRESSION: 1. Acute mildly comminuted intra-articular fracture of the first proximal phalanx with associated sof t tissue swelling. This finding was called/faxed to the emergency department at time of dictation. 2. Degenerative and postoperative changes as above. ACT 112: Negative or not required by law. The above report was generated using voice recognition software. It may contain grammatical, syntax o r spelling errors. Electronically signed by: Vinny Prieto M.D. 04/03/2020 6:41 AM
--- NOTE | 2020-04-03 06:54 | CT Scan Report ---
CT head/brain wo con CLINICAL HISTORY: 54 years-old Female with syncope, head injury. Acute syncope with head injury TECHNIQUE: Multiple axial CT images of the head were obtained without contrast. A dose lowering tech nique was utilized adhering to the principles of ALARA. CT DOSE: 614.27 mGy.cm COMPARISON: None. FINDINGS: No acute intracranial hemorrhage, midline shift, intracranial mass, hydrocephalus, territorial ischem ia or abnormal extra-axial collection. The calvarium is intact. The paranasal sinuses, mastoid air cells, and middle ear cavities are clear . IMPRESSION: No acute intracranial abnormality. ACT 112: Negative or not required by law. The above report was generated using voice recognition software. It may contain grammatical, syntax o r spelling errors. Electronically signed by: Vinny Prieto M.D. 04/03/2020 6:53 AM
--- NOTE | 2020-04-03 07:37 | CT Scan Report ---
CT abd pelvis IV con only CLINICAL HISTORY: syncope, hypotension. Recent gastric bypass, and hospitalization COMPARISON STUDY: 03/27/2020 TECHNIQUE: The patient was scanned in a dynamic helical fashion during intravenous administration of 118 cc of Optiray 320 A dose lowering technique was utilized adhering to the principles of ALARA. CT DOSE: 1568.21 mGy.cm FINDINGS: Lower chest: The heart is normal in size and configuration, without pericardial effusion. The lung ba ses and pleural spaces are clear. Liver: The right lobe hepatic masses remain similar to the prior study. The largest measures 31 mm. T his demonstrates peripheral nodular enhancement and a hemangioma is favored. Gallbladder: Unremarkable. Spleen: Normal in size and attenuation. Pancreas: Unremarkable. Adrenal glands: There is a stable 13 mm right adrenal nodule. Kidneys: There is symmetric renal cortical enhancement. The kidneys are normal in size without hydron ephrosis. Bowel: There are postsurgical changes of a gastric sleeve procedure. No extraluminal gas bubbles are visualized. There are no transition zones indicate bowel obstruction. There are scattered air-fluid l evels present within the bowel. Peritoneum: There is no intraperitoneal free air or abdominal ascites. There is a fat-containing righ t-sided periumbilical hernia unchanged from the prior study Vasculature: The abdominal aorta is normal in course and caliber. Adenopathy: None. Pelvic viscera: There is an indwelling IUD Skeletal structures: Postsurgical changes are present within the spine there is a grade 2/4 spondylol isthesis of L5 on S1. IMPRESSION: 1. No acute findings 2. Postsurgical changes of a gastric sleeve procedure 3. No evidence of bowel obstruction. No evidence of free air. ACT 112: Negative or not required by law. Electronically signed by: Willian Wilson M.D. 04/03/2020 7:36 AM
--- NOTE | 2020-04-03 08:04 | CT Scan Report ---
CT angio chest PE protocol HISTORY: 54 years-old Female with Syncope, recent hospitalization, father PE history. Acute syncope with chest pain and shortness of breath. TECHNIQUE: Multiple CTA images of the chest were obtained after the intravenous administration of ml Optiray 320. Coronal and sagittal MIPS were obtained from the axial data set and were submitted for review. All measurements were obtained according to NASCET criteria. A dose lowering technique was u tilized adhering to the principles of ALARA. COMPARISON: CTA of the chest 01/21/2020, CT abdomen and pelvis 04/03/2020. FINDINGS: CTA: Heart is normal in size. No pericardial effusion. No thoracic aortic aneurysm or dissection. Mild ect omar measures up to 3.7 cm. Imaged great vessels appear patent. The pulmonary artery is opacified to level of the proximal subsegmental branches and demonstrates no filling defects to suggest thromboemb olic disease. Minimal linear apparent filling defect within the lingula on image 144 series 4 is favo red to be artifactual. CT CHEST: 2.4 x 2.4 cm left thyroid nodule. No adenopathy. No pneumothorax, pleural effusion or overt pulmonary edema. Mild bronchial wall thickening. There are a few scattered low suspicion pulmonary nodules red emonstrated measuring up to 3 mm which are stable from comparison. Central airways are clear. Postoperative changes of the stomach. Small hiatal hernia. Probable hemangioma of the right hepatic l obe measures approximately 3 cm. Surgical clip of the left breast. No acute fracture. Right shoulder rotator cuff calcific tendinosis. IMPRESSION: 1. No definite pulmonary emboli identified. 2. Mild bronchial wall thickening suggestive of bronchitis versus reactive airway disease. 3. No airspace consolidation typical for pneumonia. 4. Scattered low suspicion pulmonary nodules are redemonstrated measuring up to 3 mm, stable from com parison. ACT 112: Negative or not required by law. The above report was generated using voice recognition software. It may contain grammatical, syntax o r spelling errors. Electronically signed by: Vinny Prieto M.D. 04/03/2020 8:03 AM
[2020-04-03] MEDS: PANTOprazole 40 MG TAB PO SCH (08:10)
[2020-04-03] MEDS: AMOXICILLIN/CLAVULANATE 875 MG TAB PO SCH ×2 (08:10→16:05)
--- NOTE | 2020-04-03 08:20 | XRay Report ---
XR chest 1V portable HISTORY: shortness of breath COMPARISON: None. FINDINGS: The lungs are clear. Cardiac silhouette is normal in size. No pleural effusions. No pneumot horax. IMPRESSION: No acute process. ACT 112: Negative or not required by law. Electronically signed by: Dandre Noriega M.D. 04/03/2020 8:18 AM
[2020-04-03 08:26] LABS: Basophils # (auto) 0.02 K/uL (0-0.2); Basophils % (auto) 0.2 %; Eosinophils # (auto) 0.22 K/uL (0-0.5); Eosinophils % (auto) 1.8 %; Hematocrit (blood only) 37.9 % (37-47); Immature Granulocytes # (auto) 0.02 K/uL (0.00-0.02); Immature Granulocytes % (auto) 0.2 %; Lymphocytes # (auto) 4.79 K/uL (1.2-3.4); Lymphocytes % (auto) 40.2 %; Mean Corpuscular Hemoglobin 29.9 pg (25-34); Mean Corpuscular Hgb Conc 34.3 g/dL (32-36); Mean Corpuscular Volume 87.1 fL (80-100); Mean Platelet Volume 9.4 fL (7.4-10.4); Monocytes # (auto) 0.76 K/uL (0.11-0.59); Monocytes % (auto) 6.4 %; Neutrophils % (auto) 51.2 %; Platelet Count 223 K/uL (130-400); RDW Coefficient of Variation 13.6 % (11.5-14.5); RDW Standard Deviation 43.3 fL (36.4-46.3); Red Blood Count 4.35 M/uL (4.2-5.4); White Blood Count 11.91 K/uL (4.8-10.8)
[2020-04-03 09:13] LABS: BUN Creatinine Ratio 19.5 (10-20); Calcium 9.4 mg/dl (8.5-10.1); Creatinine Clr Calc Pharmacy 134.6 ml/min; Est GFR (African American) 125.6; Est GFR (Non-African American) 108.4; Potassium 3.6 mmol/L (3.5-5.1)
--- NOTE | 2020-04-03 09:56 | Hospitalist Progress Note ---
Date of Service April 03, 2020 Assessment & Plan (1) Hypotension: 1-17 HR 100 and BP 67/50 on arrival, likely related to hypovolemia from diarrhea, improved with fluids 1-18 resolving, BP stable 100/70 (2) Syncope: (3) Diarrhea: - patient reports daily watery diarrhea since 03/27/20 - stool reportedly tested negative for C.diff when recently admitted at [facility] - initial thought of being induced by IV contrast, however it has persisted days beyond contrast intake - suspect secondary to early gastric dumping syndrome (osmotic fluid shifts into small bowel) - continue to monitor Patient reports that this is slowly improving 1-18 check stool WBC and stool culture if not infectious, will trial immodium and probiotics (4) Fracture of proximal phalanx of right great toe: consult Dr. Hale ortho-podiatry to treat fracture will need PT Eval once ortho establishes weight bearing restrictions (5) Hypokalemia: 17 K 2.9, likely related to diarrhea received KCL 40meq PO, KCl 10meq IV, K phos 40mmol 1-18 K 3.6, Mg 2.0 (6) Leukocytosis: possibly related to diarrhea vs reactive stool culture pending (7) Elevated d-dimer: 1-18 elevated dimer likely related to inflammatory state CTA negative for PE (8) GERD (gastroesophageal reflux disease): (9) Depression: (10) S/P gastric surgery: discussed with patient's surgeon repeat CT abdomen pelvis did not show any perforation or air continue augmentin regimen for now Admission and Anticipated Discharge Date Admission Date: April 03, 2020 Subjective Patient still having diarrhea, watery, about 4 episodes per day. Onset of diarrhea was during previous hospital stay when she was started on antibiotics. No prior episodes of diarrhea. Patient continues to have right toe pain and difficulty ambulating due to recent right ankle surgery. Review of Systems Constitutional: no fever, no chills, no fatigue, no weakness, no anorexia, no weight loss and no weight gain Ear, Nose, Mouth, Throat: no nasal congestion, no sore throat and no dysphagia Respiratory: no cough and no dyspnea Cardiovascular: no chest pain, no dyspnea on exertion, no orthopnea and no palpitations Gastrointestinal: no abdominal pain, no nausea, no vomiting, no hematemesis, no dysphagia, no constipation, no diarrhea/loose stools, no blood in stools and no melena Genitourinary: no dysuria, no urinary frequency, no hematuria and no flank pain Musculoskeletal: no back pain, no joint pain, no myalgia and no muscle weakness Integumentary: no rash, no lesions, no skin ulcer, no erythema, no dry skin and no pruritus Neurologic: no falls, no localized weakness, no generalized weakness, no numbness, no paresthesia, no tremor(s) and no headache(s) Psychiatric: no depression, no suicidal ideation, no homicidal ideation and no anxiety Endocrine: no cold intolerance and no heat intolerance Hematologic / Lymphatic: no easy bleeding and no easy bruising Physical Exam Constitutional: well developed and well nourished; no acute distress Eyes: PERRL, conjunctivae normal, anicteric sclerae ENMT: Mouth: oral mucous membranes not dry Respiratory: normal respiratory effort; no respiratory distress and no labored breathing Auscultation: lungs clear to auscultation bilaterally; no crackles, no rales, no rhonchi and no wheezes Cardiovascular: Rate/Rhythm: regular rate and regular rhythm Heart Sounds: no murmur and no cardiac rub Vessels: normal peripheral pulses and radial pulses present; no JVD Extremities: no edema Gastrointestinal (Abdomen): Inspection/Auscultation: abdomen normal to inspection and normal bowel sounds; abdomen not distended Percussion/Palpation: abdomen soft; abdomen nontender, no guarding, abdomen not rigid and no hepatosplenomegaly Musculoskeletal: Head/Neck/Chest: normocephalic and head atraumatic Spine: no cervical spinal tenderness, no cervical muscular tenderness, no thoracic spinal tenderness and no lumbar spinal tenderness Skin: no rashes, warm and dry Neurologic: CN's II-XI intact bilaterally and moves all extremities Motor/Sensory: no tremor and no sensory deficit Psychiatric: Orientation: alert, oriented to person, oriented to place and oriented to time Apperance: appropriately groomed; not disheveled Affect: euthymic affect; no anxious affect and no tearful affect Genitourinary: no CVA tenderness no Berman catheter Results & Data Results & Data ([facility]) Vital Signs (Past 12 Hours) Vital Signs Temp Pulse Pulse Resp BP BP Pulse Ox 04/03/20 07:54 36.7 C 64 20 104/67 96 04/03/20 07:17 57 L 04/03/20 06:07 65 04/03/20 04:58 36.5 C 69 18 119/77 98 04/03/20 04:00 18 108/74 98 04/03/20 03:30 18 109/68 99 04/03/20 03:00 18 97/66 L 99 04/03/20 02:15 104/72 99 04/03/20 02:00 104/68 98 04/03/20 01:47 107/61 99 04/03/20 01:15 81 16 111/73 99 04/03/20 00:46 72 16 109/63 98 04/03/20 00:30 80 20 99 04/03/20 00:29 80 12 104/75 99 04/03/20 00:27 51 H 04/03/20 00:00 124/75 04/02/20 23:45 69 16 103/65 99 04/02/20 23:30 71 16 105/72 99 04/02/20 23:15 75 15 92/61 L 96 04/02/20 23:09 72 19 84/63 L 97 04/02/20 23:00 83 18 88/64 L 88/64 L 98 04/02/20 22:50 35.9 C L 100 H 20 67/50 L 98 Laboratory Results Abnormal lab results 04/02/20 04/02/20 04/02/20 Range/Units 23:09 23:09 23:09 WBC 11.52 H (4.8-10.8) K/uL Lymph # (Auto) (1.2-3.4) K/uL Mccreary # (Auto) (0.11-0.59) K/uL Lymphocytes # (Manual) 5.00 H (1.2-3.4) K/uL Total Abs Lymphocytes 7.11 H (1.2-3.4) K/uL D-Dimer 1510 H* (0-500) ug/L FEU Potassium (3.5-5.1) mmol/L Chloride (98-107) mmol/L Creatinine (0.6-1.2) mg/dl Glucose (70-99) mg/dl Lactate 2.5 H* (0.4-2.0) mmol/L AST (15-37) U/L Ur Specific [place] (1.000-1.030) Urine Ketones (Negative) 04/02/20 04/03/20 04/03/20 Range/Units 23:09 01:50 08:11 WBC (4.8-10.8) K/uL Lymph # (Auto) (1.2-3.4) K/uL Mccreary # (Auto) (0.11-0.59) K/uL Lymphocytes # (Manual) (1.2-3.4) K/uL Total Abs Lymphocytes (1.2-3.4) K/uL D-Dimer (0-500) ug/L FEU Potassium 2.9 L (3.5-5.1) mmol/L Chloride 110 H 113 H (98-107) mmol/L Creatinine 0.53 L D (0.6-1.2) mg/dl Glucose 147 H (70-99) mg/dl Lactate (0.4-2.0) mmol/L AST 42 H (15-37) U/L Ur Specific [place] 1.041 H (1.000-1.030) Urine Ketones Trace H (Negative) 04/03/20 Range/Units 08:11 WBC 11.91 H (4.8-10.8) K/uL Lymph # (Auto) 4.79 H (1.2-3.4) K/uL Mccreary # (Auto) 0.76 H (0.11-0.59) K/uL Lymphocytes # (Manual) (1.2-3.4) K/uL Total Abs Lymphocytes (1.2-3.4) K/uL D-Dimer (0-500) ug/L FEU Potassium (3.5-5.1) mmol/L Chloride (98-107) mmol/L Creatinine (0.6-1.2) mg/dl Glucose (70-99) mg/dl Lactate (0.4-2.0) mmol/L AST (15-37) U/L Ur Specific [place] (1.000-1.030) Urine Ketones (Negative) Medications Administered Current Inpatient Medications Acetaminophen (Acetaminophen 325 Mg Tab) 650 mg PO Q4H PRN PRN Reason: Pain or Fever Stop: 05/03/20 04:57 Last Admin: 04/03/20 15:38 Dose: 650 mg Documented by: Amoxicillin/Clavulanate Potassium (Amoxicillin/Clavulanate 875 Mg Tab) 1 tab PO BIDM [facility] Stop: 04/13/20 07:59 Last Admin: 04/03/20 16:05 Dose: 1 tab Documented by: Escitalopram Oxalate (Escitalopram Oxalate 20 Mg Tab) 20 mg PO HS [facility] Stop: 05/03/20 20:59 Sodium Chloride (Nss 1000ml) 1,000 mls @ 125 mls/hr IV .Q8H [facility] Stop: 05/03/20 00:59 Last Admin: 04/03/20 10:19 Dose: 125 mls/hr Documented by: Ondansetron HCl (Ondansetron Inj 2 Mg/Ml 2 Ml Vial) 4 mg IV Q6H PRN PRN Reason: Nausea Stop: 05/03/20 04:57 Pantoprazole Sodium (Pantoprazole 40 Mg Tab) 40 mg PO DAILY [facility] Stop: 05/03/20 08:59 Last Admin: 04/03/20 08:10 Dose: 40 mg Documented by: PG Care Time/CCT Total # of Minutes Spent Total Time Spent with Patient: Total time spent is greater than 50% in coordination of care (as documented) at patient's floor/unit and/or counseling patient: Coding Level of Care Code 37061 Subseq Hosp Care Lvl 2 Diagnoses Hypotension I95.89; E86.1 Hypotension type: hypotension due to hypovolemia Syncope R55 Syncope type: vasovagal syncope Diarrhea R19.7 Diarrhea type: unspecified type Fracture of proximal phalanx of right great toe S92.414A Encounter type: initial encounter Fracture alignment: nondisplaced Fracture type: closed Hypokalemia E87.6 Leukocytosis D72.829 Elevated d-dimer R79.89 GERD (gastroesophageal reflux disease) K21.9 Depression F32.9 S/P gastric surgery Z98.890 (1) Diarrhea Diarrhea type: unspecified type Qualified Code(s): R19.7 - Diarrhea, unspecified (2) Syncope Syncope type: vasovagal syncope Qualified Code(s): R55 - Syncope and collapse (3) Fracture of proximal phalanx of right great toe Encounter type: initial encounter Fracture alignment: nondisplaced Fracture type: closed Qualified Code(s): S92.414A - Nondisplaced fracture of proximal phalanx of right great toe, initial encounter for closed fracture (4) Hypotension Hypotension type: hypotension due to hypovolemia Qualified Code(s): I95.89 - Other hypotension; E86.1 - Hypovolemia
--- NOTE | 2020-04-03 14:00 | Communication Note ---
Date of Service: April 03, 2020 History of right foot injury reviewed through the chart. Right foot x-rays reviewed with Dr. Hale. We will order a CT scan of the right foot to evaluate the great toe proximal phalanx fx. Once the CT is completed, we will visit with the patient and determine the appropriate tx at that time. Will also place patient in a hard sole post op shoe for comfort for the time being.
--- NOTE | 2020-04-03 14:54 | CT Scan Report ---
CT foot RT wo con CT DOSE: 174.27 mGy.cm CLINICAL HISTORY: Right great toe fracture. TECHNIQUE: Helical images were acquired in the transverse plane. Sagittal and coronal reformatted airam ges were acquired. A dose lowering technique was utilized adhering to the principles of ALARA. COMPARISON STUDY: X-ray study dated 04/02/2020 FINDINGS: The bones are osteopenic. There is a distal fibular metallic plate. There are postsurgical changes of a first metatarsal osteotomy. There is a nondisplaced transverse fracture involving the proximal phalanx of the great toe at juncti on of proximal and middle one third. There are no dislocations. Irregularity of the anterior aspect of the tibial plafond likely is secondary to spurring. IMPRESSION: 1. Postsurgical changes of a first metatarsal osteotomy 2. Postsurgical changes involve the distal fibula 3. Osteopenia 4. Acute nondisplaced fracture involving the proximal phalanx of the great toe ACT 112: Negative or not required by law. Electronically signed by: Willian Wilson M.D. 04/03/2020 2:52 PM
--- NOTE | 2020-04-03 18:20 | Electrocardiogram Report ---
Test Reason : Blood Pressure : / mmHG Vent. Rate : 087 BPM Atrial Rate : 087 BPM P-R Int : 168 ms QRS Dur : 074 ms QT Int : 356 ms P-R-T Axes : 025 014 003 degrees QTc Int : 428 ms Normal sinus rhythm Low voltage QRS Cannot rule out Inferior infarct , age undetermined T wave abnormality, consider anterior ischemia Abnormal ECG When compared with ECG of 31-JAN-2020 12:12, Minimal criteria for Inferior infarct are now Present Nonspecific T wave abnormality now evident in Inferior leads Inverted T waves have replaced nonspecific T wave abnormality in Anterolateral leads Confirmed by Aec Krueger ([id number]) on 04/03/2020 6:19:58 PM Referred By: REFERRED SELF Confirmed By:Ace Krueger
[2020-04-03 18:21] LABS: Thyroid Stimulating Hormone 4.7 uIu/ml (0.300-4.500)
[2020-04-03 18:35] LABS: T4 Free Thyroxine 1.01 ng/dl (0.8-1.6)
[2020-04-03] MEDS: ESCITALOPRAM OXALATE 20 MG TAB PO SCH (22:12)
[2020-04-04] MEDS: SODIUM CHLORIDE 0.9% 1000ML 1,000 ML IV SCH ×2 (03:15→13:10)
[2020-04-04 06:15] LABS: Hematocrit (blood only) 36.6 % (37-47); Hemoglobin 12.4 g/dL (12.0-16.0); Mean Corpuscular Hemoglobin 29.8 pg (25-34); Mean Corpuscular Hgb Conc 33.9 g/dL (32-36); Mean Platelet Volume 9.1 fL (7.4-10.4); Platelet Count 228 K/uL (130-400); RDW Coefficient of Variation 13.7 % (11.5-14.5); RDW Standard Deviation 43.7 fL (36.4-46.3); Red Blood Count 4.16 M/uL (4.2-5.4); White Blood Count 7.82 K/uL (4.8-10.8)
[2020-04-04 06:36] LABS: Basophils # (auto) 0.01 K/uL (0-0.2); Basophils % (auto) 0.1 %; Eosinophils # (auto) 0.23 K/uL (0-0.5); Eosinophils % (auto) 2.9 %; Immature Granulocytes # (auto) 0.01 K/uL (0.00-0.02); Immature Granulocytes % (auto) 0.1 %; Lymphocytes # (auto) 4.12 K/uL (1.2-3.4); Lymphocytes % (auto) 52.7 %; Monocytes # (auto) 0.51 K/uL (0.11-0.59); Monocytes % (auto) 6.5 %; Neutrophils # (auto) 2.94 K/uL (1.4-6.5); Neutrophils % (auto) 37.7 %
[2020-04-04 06:57] LABS: Albumin Globulin Ratio 1.2 (0.9-2); Albumin Level 3.3 gm/dl (3.4-5.0); Bilirubin,Total 0.6 mg/dl (0.2-1); Calcium 9.3 mg/dl (8.5-10.1); Est GFR (African American) 132.6; Est GFR (Non-African American) 114.4; Globulin 2.7 gm/dl (2.5-4.0); Magnesium 1.9 mg/dl (1.8-2.4); Phosphorus 4.1 mg/dl (2.5-4.9); Potassium 3.3 mmol/L (3.5-5.1)
--- NOTE | 2020-04-04 07:29 | Hospitalist Progress Note ---
Date of Service April 04, 2020 Assessment & Plan (1) Hypokalemia: 04-02 K 2.9, likely related to diarrhea received KCL 40meq PO, KCl 10meq IV, K phos 40mmol 04-03 K 3.6, Mg 2.0 04-04 K 3.3, giving 40meq K Cl oral will need to follow up with PCP for repeat BMP (2) Diarrhea: - patient reports daily watery diarrhea since 03/27/20 - stool reportedly tested negative for C.diff when recently admitted at [facility] - initial thought of being induced by IV contrast, however it has persisted days beyond contrast intake 04-03 check stool WBC and stool culture if not infectious, will trial immodium and probiotics 04-04 stool without polys, unlikely infectious diarrhea, likely related to augmentin start imodium as needed (3) Fracture of proximal phalanx of right great toe: consult Dr. Hale ortho-podiatry to treat fracture 04-04 ortho recs boot, non-op management for now PT eval and treat, weight bearing as tolerated on right heel (4) Hypotension: 04-02 HR 100 and BP 67/50 on arrival, likely related to hypovolemia from diarrhea, improved with fluids 04-03 resolving, BP stable 100/70 (5) Syncope: related to hypotension resolved (6) Leukocytosis: possibly related to diarrhea vs reactive stool culture pending 04-04 leukocytosis resolved (7) Elevated d-dimer: 04-03 elevated dimer likely related to inflammatory state CTA negative for PE (8) GERD (gastroesophageal reflux disease): (9) Depression: (10) S/P gastric surgery: discussed with patient's surgeon repeat CT abdomen pelvis did not show any perforation or air continue augmentin regimen through 04-07 which is 7 day course Admission and Anticipated Discharge Date Admission Date: April 03, 2020 Subjective States her diarrhea stopped last night. Only passing gas overnight and today. No nausea or vomiting. Tolerating PO. Denies fevers. Wearing boot on right foot. Ortho states no surgery planned. Not requiring pain meds for toe injury. Review of Systems Constitutional: no fever, no chills, no fatigue, no weakness, no anorexia, no weight loss and no weight gain Ear, Nose, Mouth, Throat: no nasal congestion, no sore throat and no dysphagia Respiratory: no cough and no dyspnea Cardiovascular: no chest pain, no dyspnea on exertion, no orthopnea and no palpitations Gastrointestinal: no abdominal pain, no nausea, no vomiting, no hematemesis, no dysphagia, no constipation, no diarrhea/loose stools, no blood in stools and no melena Genitourinary: no dysuria, no urinary frequency, no hematuria and no flank pain Musculoskeletal: no back pain, no joint pain, no myalgia and no muscle weakness Integumentary: no rash, no lesions, no skin ulcer, no erythema, no dry skin and no pruritus Neurologic: no falls, no localized weakness, no generalized weakness, no numbness, no paresthesia, no tremor(s) and no headache(s) Psychiatric: no depression, no suicidal ideation, no homicidal ideation and no anxiety Endocrine: no cold intolerance and no heat intolerance Hematologic / Lymphatic: no easy bleeding and no easy bruising Physical Exam Constitutional: well developed and well nourished; no acute distress Eyes: PERRL, conjunctivae normal, anicteric sclerae ENMT: Mouth: oral mucous membranes not dry Respiratory: normal respiratory effort; no respiratory distress and no labored breathing Auscultation: lungs clear to auscultation bilaterally; no crackles, no rales, no rhonchi and no wheezes Cardiovascular: Rate/Rhythm: regular rate and regular rhythm Heart Sounds: no murmur and no cardiac rub Vessels: normal peripheral pulses and radial pulses present; no JVD Extremities: no edema Gastrointestinal (Abdomen): Inspection/Auscultation: abdomen normal to inspection and normal bowel sounds; abdomen not distended Percussi on/Palpation: abdomen soft; abdomen nontender, no guarding, abdomen not rigid and no hepatosplenomegaly Musculoskeletal: Head/Neck/Chest: normocephalic and head atraumatic Spine: no cervical spinal tenderness, no cervical muscular tenderness, no thoracic spinal tenderness and no lumbar spinal tenderness wearing hard boot on right foot Skin: no rashes, warm and dry Neurologic: CN's II-XI intact bilaterally and moves all extremities Motor/Sensory: no tremor and no sensory deficit Psychiatric: Orientation: alert, oriented to person, oriented to place and oriented to time Apperance: appropriately groomed; not disheveled Affect: euthymic affect; no anxious affect and no tearful affect Genitourinary: no CVA tenderness Results & Data Results & Data ([facility]) Vital Signs (Past 12 Hours) Vital Signs Temp Pulse Pulse Resp BP Pulse Ox 04/04/20 04:06 36.4 C L 62 16 121/77 96 04/03/20 23:49 75 04/03/20 23:33 37 C 59 L 16 114/73 97 Laboratory Results Abnormal lab results 04/03/20 04/04/20 04/04/20 Range/Units 08:11 06:03 06:03 RBC 4.16 L (4.2-5.4) M/uL Hct 36.6 L (37-47) % Lymph # (Auto) 4.12 H (1.2-3.4) K/uL Potassium 3.3 L (3.5-5.1) mmol/L Chloride 113 H (98-107) mmol/L BUN 4 L D (7-18) mg/dl Creatinine 0.45 L (0.6-1.2) mg/dl BUN/Creatinine Ratio 8.0 L (10-20) Total Protein 6.0 L (6.4-8.2) gm/dl Albumin 3.3 L (3.4-5.0) gm/dl TSH 4.700 H (0.300-4.500) uIu/ml Medications Administered Current Inpatient Medications Acetaminophen (Acetaminophen 325 Mg Tab) 650 mg PO Q4H PRN PRN Reason: Pain or Fever Stop: 05/03/20 04:57 Last Admin: 04/04/20 08:30 Dose: 650 mg Documented by: Amoxicillin/Clavulanate Potassium (Amoxicillin/Clavulanate 875 Mg Tab) [facility] Stop: 04/13/20 07:59 Last Admin: 04/04/20 08:28 Dose: 1 tab Documented by: Escitalopram Oxalate (Escitalopram Oxalate 20 Mg Tab) 20 mg PO [facility] Stop: 05/03/20 20:59 Last Admin: 04/03/20 22:12 Dose: 20 mg Documented by: Loperamide HCl (Loperamide Hcl 2 Mg Cap) 2 mg PO Q3H PRN PRN Reason: Diarrhea Stop: 05/04/20 10:45 Ondansetron HCl (Ondansetron Inj 2 Mg/Ml 2 Ml Vial) 4 mg IV Q6H PRN PRN Reason: Nausea Stop: 05/03/20 04:57 Pantoprazole Sodium (Pantoprazole 40 Mg Tab) 40 mg PO DAILY [facility] Stop: 05/03/20 08:59 Last Admin: 04/04/20 08:28 Dose: 40 mg Documented by: PG Care Time/CCT Total # of Minutes Spent Total Time Spent with Patient: Total time spent is greater than 50% in coordination of care (as documented) at patient's floor/unit and/or counseling patient: Coding Level of Care Code 76773 Subseq Hosp Care Lvl 2 Diagnoses Hypokalemia E87.6 Diarrhea R19.7 Diarrhea type: unspecified type Fracture of proximal phalanx of right great toe S92.414A Encounter type: initial encounter Fracture alignment: nondisplaced Fracture type: closed Hypotension I95.89; E86.1 Hypotension type: hypotension due to hypovolemia Syncope R55 Syncope type: vasovagal syncope Leukocytosis D72.829 Elevated d-dimer R79.89 GERD (gastroesophageal reflux disease) K21.9 Depression F32.9 S/P gastric surgery Z98.890 (1) Diarrhea Diarrhea type: unspecified type Qualified Code(s): R19.7 - Diarrhea, unspecified (2) Syncope Syncope type: vasovagal syncope Qualified Code(s): R55 - Syncope and collapse (3) Fracture of proximal phalanx of right great toe Encounter type: initial encounter Fracture alignment: nondisplaced Fracture type: closed Qualified Code(s): S92.414A - Nondisplaced fracture of proximal phalanx of right great toe, initial encounter for closed fracture (4) Hypotension Hypotension type: hypotension due to hypovolemia Qualified Code(s): I95.89 - Other hypotension; E86.1 - Hypovolemia
[2020-04-04] MEDS: AMOXICILLIN/CLAVULANATE 875 MG TAB PO SCH ×2 (08:28→17:41)
[2020-04-04] MEDS: PANTOprazole 40 MG TAB PO SCH (08:28)
[2020-04-04] MEDS: ACETAMINOPHEN 325 MG TAB PO PRN (08:30)
--- NOTE | 2020-04-04 10:33 | Orthopedic Consultation ---
Date of Consultation April 04, 2020 Assessment & Plan (1) Fracture of proximal phalanx of right great toe: CT scan was ordered by Hermelindo Lopez PA-C/Dr. Hale. CT showing nondisplaced fracture of the distal phalanx of the right great toe. Dr. Hale to review CT. There is a question of it needing a possible ORIF with pinning and will await his input. Would recommend weightbearing as tolerated on the heel only for now. History of Present Illness Reason for Consultation: Right great toe distal phalanx fracture Attending Physician: Jeanne Johnson MD History of Present Illness Patient is a 54-year-old white female who was admitted several days ago after a syncopal episode. Patient states that she was at home taking care of her parents. While she was brushing her teeth when evening, she passed out. He is unsure why. She denies any shortness of breath or chest pain prior to or after the fall. She did have pain in her right foot and upon x-ray was found that she had a fracture of the distal phalanx of the right great toe. We have been asked to take care of her distal phalanx fracture. Allergies Allergy/AdvReac Type Severity Reaction Status Date / Time divalproex sodium Allergy Hives Unverified 03/27/20 17:38 [facility] Home Medications Medication Instructions Recorded Confirmed Type calcium carbonate-vitamin D3 1 tab PO BID 03/27/20 04/02/20 History [Calcium + D] escitalopram oxalate 20 mg PO HS 03/27/20 04/02/20 History multivitamin [Multiple Vitamin] 1 tab PO DAILY 03/27/20 04/02/20 History oxcarbazepine 450 mg PO BID 03/27/20 04/02/20 History pantoprazole 40 mg PO DAILY 03/27/20 04/02/20 History topiramate 400 mg PO HS 03/27/20 04/02/20 History cyanocobalamin (vitamin B-12) 1,000 mcg PO DAILY 04/02/20 04/02/20 History [Vitamin B-12] Patient History Medical History No pertinent past medical history Surgical History History of bariatric surgery Gastric Sleeve Social History Smoking Status: Never smoker Hx Alcohol Use: No Hx Substance Use: No Preferred Language: Bulgarian Beliefs That Will Affect Care: None Current Living Situation: Parent Current Living Situation Comment: Helping take care of parents, lives with them Other Information That Helps Us Care for You: No Feels Safe at Home: Yes Safety Concerns: Feels Safe At This Time Assistive Devices: None Review of Systems Review of Systems: All systems reviewed & are unremarkable except as noted in HPI & below Physical Exam Physical Exam: On examination of the right foot, patient is wearing a cast shoe at this time. This is removed as well as her sock. She has noticeable well-healed incisions around the ankle from previous injury that was treated in [facility]. She also has a noted scar from her bunion correction that was done on the right great toe. She has some mild swelling of the right great toe but no overt erythema. Sensation is intact and cap refill is less than 2 seconds. She is tender on palpation of the distal phalanx. Results & Data ([facility]) Vital Signs (Past 12 Hours) Vital Signs Temp Pulse Pulse Resp BP Pulse Ox 04/04/20 08:08 59 L 04/04/20 07:46 36.6 C 58 L 16 121/73 97 04/04/20 04:06 36.4 C L 62 16 121/77 96 04/03/20 23:49 75 04/03/20 23:33 37 C 59 L 16 114/73 97 Diagnostic Findings Patient: Gabriele PARKINSON Date: 04/03/20#: [id number]: 1944 [address] [facility] ID:[id number]: Date: [address] Zip: [place], [place] [address]Twy: 54Location: 2WSex: FRoom/Bed: [id number] Phy: Jeanne Johnson, MDDiagnosis: SYNCOPEPri Phy: Minnie Avery CRNPService Date: 04/03/20Fam Phy:Interpreting Phy: [facility]: Linda Sandhu MD Ordering Phy: Hermelindo Lopez PA-C cc: ~ CT foot RT wo con CT DOSE: 174.27 mGy.cm CLINICAL HISTORY: Right great toe fracture. TECHNIQUE: Helical images were acquired in the transverse plane. Sagittal and coronal reformatted images were acquired. A dose lowering technique was ut ilized adhering to the principles of ALARA. COMPARISON STUDY: X-ray study dated 04/02/2020 FINDINGS: The bones are osteopenic. There is a distal fibular metallic plate. There are postsurgical changes of a first metatarsal osteotomy. There is a nondisplaced transverse fracture involving the proximal phalanx of the great toe at junction of proximal and middle one third. There are no dislocations. Irregularity of the anterior aspect of the tibial plafond likely is secondary to spurring. IMPRESSION: 1. Postsurgical changes of a first metatarsal osteotomy 2. Postsurgical changes involve the distal fibula 3. Osteopenia 4. Acute nondisplaced fracture involving the proximal phalanx of the great toe ACT 112: Negative or not required by law. (1) Fracture of proximal phalanx of right great toe Encounter type: initial encounter Fracture type: closed Fracture alignment: nondisplaced Qualified Code(s): S92.414A - Nondisplaced fracture of proximal phalanx of right great toe, initial encounter for closed fracture
[2020-04-04] MEDS ORDERED: POTASSIUM CHLORIDE CRTAB 20 MEQ TABCR PO STA (10:47)
--- NOTE | 2020-04-04 13:41 | Communication Note ---
Date of Service: April 04, [address] reviewed by Dr Hale. Fracture at this time is nonurgent and likely will not need surgical intervention at this time. Failed bunionectomy. Continue firm cast shoe and maintain weightbearing on the heel only when ambulating. Follow up with Dr. Hale/Hermelindo Neely in one week.
[2020-04-04] MEDS: LOPERAMIDE HCL 2 MG CAP PO PRN (18:45)
[2020-04-04] MEDS: ESCITALOPRAM OXALATE 20 MG TAB PO SCH (22:07)
[2020-04-05 06:44] LABS: Hematocrit (blood only) 39.8 % (37-47); Hemoglobin 13.3 g/dL (12.0-16.0); Mean Corpuscular Hemoglobin 29.5 pg (25-34); Mean Corpuscular Hgb Conc 33.4 g/dL (32-36); Mean Corpuscular Volume 88.2 fL (80-100); Platelet Count 227 K/uL (130-400); RDW Coefficient of Variation 13.6 % (11.5-14.5); RDW Standard Deviation 44.3 fL (36.4-46.3); Red Blood Count 4.51 M/uL (4.2-5.4); White Blood Count 8.97 K/uL (4.8-10.8)
[2020-04-05] MEDS: AMOXICILLIN/CLAVULANATE 875 MG TAB PO SCH (07:02)
[2020-04-05] MEDS: PANTOprazole 40 MG TAB PO SCH (07:02)
[2020-04-05 07:12] LABS: Albumin Level 3.5 gm/dl (3.4-5.0); BUN Creatinine Ratio 10.5 (10-20); Calcium 9.7 mg/dl (8.5-10.1); Creatinine Clr Calc Pharmacy 125.9 ml/min; Est GFR (African American) 122.7; Est GFR (Non-African American) 105.8; Magnesium 2.2 mg/dl (1.8-2.4); Potassium 3.6 mmol/L (3.5-5.1)
[2020-04-05 07:15] LABS: Albumin Globulin Ratio 1.1 (0.9-2); Bilirubin,Total 0.8 mg/dl (0.2-1); Globulin 3.2 gm/dl (2.5-4.0); Phosphorus 4.2 mg/dl (2.5-4.9); Total Protein 6.7 gm/dl (6.4-8.2)
--- NOTE | 2020-04-05 07:21 | Discharge Summary ---
Date of Service April 05, 2020 Admission HPI Per Admitting Provider Mrs. Rhodes is a 54 yo F who presented to the ED for evaluation after a syncopal episode. Of note, she recently underwent laparoscopic gastric sleeve procedure on 02/21/20 at [facility]. For the first 2.5 weeks after the surgery, she had no issues; she progressed through her bariatric diet well. Subsequently, she began to develop intermittent abdominal pain and nausea. On 03/27/20 she presented to the [facility] ED for evaluation of nausea/vomiting, and watery diarrhea. A CT scan of her abdomen and pelvis was obtained at this time, which showed gas in the colon, suspected to be from recent laparoscopic procedure vs. consistent with a microperforation. Patient improved with IV hydration and was sent home from the ED, directed to follow up with her bariatric surgeon. The very next day, 03/28/20 she traveled to [place] to see her bariatric surgeon, at which time she was briefly hospitalized for IV antibiotics (in the event the air visualized in the large bowel from CT scan performed here on 03/27/20 represented a perforation). She was discharged on 03/31/[address] [facility] with a two week course of Augmentin. Mrs. Rhodes reports that ever since she presented on 03/27/20 she has been having watery diarrhea on a daily basis. Her surgeon initially thought it was from the IV contrast she drank before her A/P CT scan on 03/27/20- however it has persisted long after its use. Mrs. Rhodes does say that her stool was tested for c.diff while admitted to [facility] this past week and returned negative. Prior to her admission during the early hours of 04/03/19, she was actually beginning to feel better. Her nausea and vomiting resolved, she was tolerating PO intake well. She was seated in a recliner after dinner - she stood up, walked to the bathroom, and attempted to brush her teeth. Mrs. Rhodes reports she must have passed out because her daughter found her lying on the bathroom floor. She does report feeling somewhat lightheaded as she walked down the blount to the bathroom, but she denies any chest pain, SOB, palpitations, or greying of vision preceding her fall. In fact, she does not remember falling - she just remembers waking up on the ground. She had a cut on her lip - she says she must have struck her face on her bathroom vanity when falling. She is not on a blood thinner. She is not on any blood pressure medications at this time - they were discontin ued within the past month. She denied any associated cold symptoms, fever/chills. Patient is concerned about her R foot (and potential damage it may have sustained in her fall), as she had hardware placed during an operation this past summer. In the ED: patient was afebrile, HR normal at 81, BP soft at 104/72. WBC elevated mildly to 11 with lymphocytosis. Hgb normal. CMP notable for low K at 2.7. D-dimer was elevated to 1510. Lactate was elevated to 2.4 on arrival, cleared to 1.6. Lipase normal at 164. Trop undetectable. COVID 19 neg. EKG showing NSR at 84 bpm. CXR showing no acute process (official read pending). Head CT negative for acute bleed or fracture (official read pending). R foot XR ordered. A/P CT scan showing no abscess or fluid collection; expected pos- operative changes (official read pending). Chest CTA negative for acute PE (official read pending). She was given 10meQ potassium chloride and 1 liter of normal saline. Principal Diagnosis syncope 2' to hypotension diarrhea hypokalemia right great toe fracture Discharge Exam Constitutional well developed and well nourished; no acute distress Eyes PERRL, conjunctivae normal, anicteric sclerae ENMT Mouth: oral mucous membranes not dry Respiratory normal respiratory effort; no respiratory distress and no labored breathing Auscultation: lungs clear to auscultation bilaterally; no crackles, no rales, no rhonchi and no wheezes Cardiovascular Rate/Rhythm: regular rate and regular rhythm Heart Sounds: no murmur and no cardiac rub Vessels: normal peripheral pulses and radial pulses present; no JVD Extremities: no edema Gastrointestinal (Abdomen) Inspection/Auscultation: abdomen normal to inspection and normal bowel sounds; abdomen not distended Percussion/Palpation: abdomen soft; abdomen nontender, no guarding, abdomen not rigid and no hepatosplenomegaly Musculoskeletal Head/Neck/Chest: normocephalic and head atraumatic Spine: no cervical spinal tenderness, no cervical muscular tenderness, no thoracic spinal tenderness and no lumbar spinal tenderness Skin no rashes, warm and dry Neurologic CN's II-XI intact bilaterally and moves all extremities Motor/Sensory: no tremor and no sensory deficit Psychiatric Orientation: alert, oriented to person, oriented to place and oriented to time Apperance: appropriately groomed; not disheveled Affect: euthymic affect; no anxious affect and no tearful affect Genitourinary no CVA tenderness Discharge Data Allergies Allergy/AdvReac Type Severity Reaction Status Date / Time divalproex sodium Allergy Hives Unverified 03/27/20 17:38 [From Depakote] Consultations 04/03/20 01:25 ED Decision to Admit Stat 04/03/20 10:28 Consult Orthopedic Surgery Routine Ordered Studies 04/02/20 23:48 CT abd pelvis IV con only Urgent CT angio chest PE protocol Urgent CT head/brain wo con Urgent 04/03/20 13:44 CT foot RT wo con Urgent Hospital Course (1) Diarrhea: patient reports daily watery diarrhea since 03/27/20 stool reportedly tested negative for C.diff when recently admitted at [facility] initial thought of being induced by IV contrast, however it has persisted days beyond contrast intake 04-03 check stool WBC and stool culture if not infectious, will trial imodium and probiotics 04-04 stool without polys, unlikely infectious diarrhea, likely related to augmentin or gastric sleeve dumping syndrome stool culture with lisa "Lisa species are part of the normal microbiota of the gastrointestinal tract. Isolation of Lisa species from stool cultures does not represent infection and therefore does not warrant treatment." per UpToDate start imodium as needed 04-06 only two small watery BMs in last 24h started psyllium but recommended she take a fiber pill that does not contain sugar counselled on avoidance of simple sugars and carbohydrates to improve diarrhea, increase fiber and protein 1L gatorade or pedialyte per day (2) Fracture of proximal phalanx of right great toe: consult Dr. Hale ortho-podiatry to treat fracture 04-04 ortho recs boot, non-op management for now PT eval and treat, weight bearing as tolerated on right heel will see Dr. Hale as outpatient (3) Hypokalemia: 04-02 K 2.9, likely related to diarrhea received KCL 40meq PO, KCl 10meq IV, K phos 40mmol -18 K 3.6, Mg 2.0 - K 3.3, giving 40meq K Cl oral will need to follow up with PCP for repeat BMP -20 K 3.6, stable 04-06 started KCl 20meq daily repeat BMP with PCP next week (4) S/P gastric surgery: discussed with patient's surgeon repeat CT abdomen pelvis did not show any perforation or air she completed 6 days of augmentin, but could not tolerate longer course due to intractable diarrhea 04-05 switched to flagyl and cipro which she did not tolerate due to headache and nausea 04-06 stopped antibiotics no fevers no infectious symptoms (5) Hypotension: 04-02 HR 100 and BP 67/50 on arrival, likely related to hypovolemia from diarrhea, improved with fluids 04-03 resolving, BP stable 100/70 04-06 BP stable 100/66 patient not dizzy when standing (6) Syncope: related to hypotension resolved (7) Leukocytosis: possibly related to diarrhea vs reactive stool culture pending 04-04 leukocytosis resolved (8) Elevated d-dimer: 04-03 elevated dimer likely related to inflammatory state CTA negative for PE (9) GERD (gastroesophageal reflux disease): (10) Depression: Total Time Total Time Spent Total Time Spent (In Minutes): 45 minutes Total Time Includes: Examination of the Patient, Discharge Planning, Medication Reconciliation and Communication With Other Providers Discharge Plan Discharge Items Patient Disposition: Home - Self-Care Reason For Visit: SYNCOPE Discharge Diagnosis: syncope due to hypotension diarrhea low potassium due to diarrhea Activity: As commented below Weightbearing: Right weightbearing Weightbearing Comment: on Heel only with crutches Non-emergency contact: Primary Care Provider Call non-emergency contact if: you have any medication questions Follow-up/Referrals: Thom Hale DO [Surgeon] - 04/11/20 2:00 pm (You have an appt with Dr. Hale on 04/11 @ 2pm. Please arrive 15 minutes prior to appt time. It is important that you keep this appt, if for any reason this appt does not fit your schedule please call [phone] to reschedule. [address] [place] [address]) Minnie Avery CRNP [Primary Care Provider] - (within one week for repeat BMP and CBC and follow up of hospitalization) Diet: Bariatric Addtl Attending Provider Instructions: Follow these diet recommendations Continue to hydrate with gatorade or pedialyte, at least one liter per day Frequent small meals that are high in fiber and protein and low in carbohydrates Avoid simple sugars which will worsen your diarrhea Take imodium 2mg orally after each loose stool, no more than 5 imodium pills per day Take psyllium 1 packet oral daily as needed for diarrhea Follow up with your general surgeon as previously scheduled If diarrhea does not improve, discuss with your surgeon an ask for a referral to a hand cigar maker. A medication called octreotide which is given once monthly can improve "dumping syndrome" which is diarrhea related to gastric surgery See your primary care physician within one week for repeat blood work (BMP and CBC) Addtl Support Worker Provider Instructions: Always use a very firm shoe (or current cast shoe) for ambulation. Heel weight bearing only at this time. Follow up with Dr Hale in 1 week. Please call for an appt. [phone] Pending Studies at Discharge: No Stand-Alone Forms: My [facility] [employer], Smoking Cessation Medications and DC Order Prescriptions: New loperamide 2 mg Capsule 2 mg PO Q3H PRN (Reason: loose stool) Qty: 30 RF: 0 Metamucil (with sugar) 3.4 gram Powder In Packet 1 ea PO QAM PRN (Reason: diarrhea) 30 Days Qty: 30 RF: 0 potassium chloride [Klor-Con M20] 20 mEq Tablet,Er Particles/Crystals 20 meq PO QAM Qty: 30 RF: 0 Continued escitalopram oxalate 20 mg tablet 20 mg PO HS RF: 0 topiramate 200 mg tablet 400 mg PO HS RF: 0 multivitamin Tablet 1 tab PO DAILY RF: 0 calcium carbonate-vitamin D3 600 mg(1,500mg) -200 unit Tablet 1 tab PO BID RF: 0 pantoprazole 40 mg tablet,delayed release (DR/EC) 40 mg PO DAILY RF: 0 oxcarbazepine 150 mg tablet 450 mg PO BID RF: 0 cyanocobalamin (vitamin B-12) [Vitamin B-12] 1,000 mcg Tablet 1,000 mcg PO DAILY RF: 0 Discharge Orders: Discharge Order (Routine); Ordered 04/06/20 Ordered By: Jeanne Johnson Admission Data Admit Date/Time: 04/05/20 11:53 Attending Provider: Jeanne Johnson Admit Provider: Linda Sandhu Primary Care Provider: Minnie Avery Other Providers: Elvi Coley ; Thom Hale Coding Level of Care Code D/C Day Management >30 mins Diagnoses Diarrhea R19.7 Diarrhea type: unspecified type Fracture of proximal phalanx of right great toe S92.414A Encounter type: initial encounter Fracture alignment: nondisplaced Fracture type: closed Hypokalemia E87.6 S/P gastric surgery Z98.890 Hypotension I95.89; E86.1 Hypotension type: hypotension due to hypovolemia Syncope R55 Syncope type: vasovagal syncope Leukocytosis D72.829 Elevated d-dimer R79.89 GERD (gastroesophageal reflux disease) K21.9 Depression F32.9
[2020-04-05] MEDS ORDERED: POTASSIUM CHLORIDE CRTAB 20 MEQ TABCR PO STA (07:27)
[2020-04-05] MEDS: LOPERAMIDE HCL 2 MG CAP PO PRN ×2 (09:27→13:33)
--- NOTE | 2020-04-05 11:59 | Hospitalist Progress Note ---
Date of Service April 05, 2020 Assessment & Plan (1) Hypokalemia: 04-02 K 2.9, likely related to diarrhea received KCL 40meq PO, KCl 10meq IV, K phos 40mmol 04-03 K 3.6, Mg 2.0 04-04 K 3.3, giving 40meq K Cl oral will need to follow up with PCP for repeat BMP 04-05 K 3.6, stable gave K Cl 40meq this morning (2) Diarrhea: - patient reports daily watery diarrhea since 03/27/20 - stool reportedly tested negative for C.diff when recently admitted at [facility] - initial thought of being induced by IV contrast, however it has persisted days beyond contrast intake 04-03 check stool WBC and stool culture if not infectious, will trial immodium and probiotics 04-04 stool without polys, unlikely infectious diarrhea, likely related to augmentin start imodium as needed 04-05 received one dose of imodium at 6pm last night reports 1 episode of diarrhea last night and two episodes this morning likely related to augmentin stopping augmentin and switching to cipro and flagyl (3) Fracture of proximal phalanx of right great toe: consult Dr. Hale ortho-podiatry to treat fracture 04-04 ortho recs boot, non-op management for now PT eval and treat weight bearing as tolerated on right heel follow up Dr. Hale in clinic as outpatient (4) S/P gastric surgery: discussed with patient's surgeon repeat CT abdomen pelvis did not show any perforation or air was supposed to continue augmentin regimen through 04-14 will stop augmentin due to diarrhea start cipro/flagyl to see if she tolerates better (5) Hypotension: 04-02 HR 100 and BP 67/50 on arrival, likely related to hypovolemia from diarrhea, improved with fluids 04-03 resolving, BP stable 100/70 (6) Syncope: related to hypotension resolved (7) Leukocytosis: possibly related to diarrhea vs reactive stool culture pending 04-04 leukocytosis resolved (8) Elevated d-dimer: 04-03 elevated dimer likely related to inflammatory state CTA negative for PE (9) GERD (gastroesophageal reflux disease): (10) Depression: Admission and Anticipated Discharge Date Admission Date: April 03, 2020 Subjective Patient denies abdominal pain, endorsing diarrhea 1 episode last night and 2 episodes this morning. Diarrhea was treated with imodium last night, which seemed to help. Denies hematochezia. No nausea or vomiting. Patient very concerned that if she continues to have diarrhea, she will pass out again. Also, she is worried about her low potassium levels. Pain in right foot, mild. She is concerned about walking on heel due to recent surgery on right ankle in December. She has an ankle brace which she can wear with her boot, which might help. Review of Systems 2 Constitutional: no fever, no chills, no fatigue, no weakness, no anorexia, no weight loss and no weight gain Ear, Nose, Mouth, Throat: no nasal congestion, no sore throat and no dysphagia Respiratory: no cough and no dyspnea Cardiovascular: no chest pain, no dyspnea on exertion, no orthopnea and no palpitations Gastrointestinal: + diarrhea/loose stools; no abdominal pain, no nausea, no vomiting, no hematemesis, no dysphagia, no constipation, no blood in stools and no melena Genitourinary: no dysuria, no urinary frequency, no hematuria and no flank pain Musculoskeletal: + joint pain; no back pain, no myalgia and no muscle weakness foot pain Integumentary: no rash, no lesions, no skin ulcer, no erythema, no dry skin and no pruritus Neurologic: no falls, no localized weakness, no generalized weakness, no numbness, no paresthesia, no tremor(s) and no headache(s) Psychiatric: no depression, no suicidal ideation, no homicidal ideation and no anxiety Endocrine: no cold intolerance and no heat intolerance Hematologic / Lymphatic: no easy bleeding and no easy bruising Physical Exam Constitutional: well developed and well nourished; no acute distress Eyes: PERRL, conjunctivae normal, anicteric sclerae ENMT: Mouth: oral mucous membranes not dry Respiratory: normal respiratory effort; no respiratory distress and no labored breathing Auscultation: lungs clear to auscultation bilaterally; no crackles, no rales, no rhonchi and no wheezes Cardiovascular: Rate/Rhythm: regular rate and regular rhythm Heart Sounds: no murmur and no cardiac rub Vessels: normal peripheral pulses and radial pulses present; no JVD Extremities: no edema Gastrointestinal (Abdomen): Inspection/Auscultation: abdomen normal to inspection and normal bowel sounds; abdomen not distended Percussion/Palpation: abdomen soft; abdomen nontender, no guarding, abdomen not rigid and no hepatosplenomegaly Musculoskeletal: Head/Neck/Chest: normocephalic and head atraumatic Spine: no cervical spinal tenderness, no cervical muscular tenderness, no thoracic spinal tenderness and no lumbar spinal tenderness wearing hard boot on right foot Skin: no rashes, warm and dry Neurologic: CN's II-XI intact bilaterally and moves all extremities Motor/Sensory: no tremor and no sensory deficit Psychiatric: Orientation: alert, oriented to person, oriented to place and oriented to time Apperance: appropriately groomed; not disheveled Affect: euthymic affect; no anxious affect and no tearful affect Genitourinary: no CVA tenderness Results & Data Results & Data ([facility]) Vital Signs (Past 12 Hours) Vital Signs Temp Pulse Pulse Resp BP Pulse Ox 04/05/20 11:32 36.6 C 61 18 106/73 96 04/05/20 09:00 62 04/05/20 06:59 36.9 C 66 18 110/71 95 04/05/20 03:15 37.0 C 74 18 112/74 96 04/05/20 00:09 65 Laboratory Results Abnormal lab results 04/05/20 Range/Units 06:25 BUN 6 L (7-18) mg/dl Creatinine 0.57 L (0.6-1.2) mg/dl Medications Administered Current Inpatient Medications Acetaminophen (Acetaminophen 325 Mg Tab) 650 mg PO Q4H PRN PRN Reason: Pain or Fever Stop: 05/03/20 04:57 Last Admin: 04/05/20 15:00 Dose: 650 mg Documented by: Ciprofloxacin (Ciprofloxacin 500 Mg Tab) 500 mg PO BID JOSE ANTONIO Stop: 04/15/20 11:59 Last Admin: 04/05/20 13:33 Dose: 500 mg Documented by: Escitalopram Oxalate (Escitalopram Oxalate 20 Mg Tab) 20 mg PO HS JOSE ANTONIO Stop: 05/03/20 20:59 Last Admin: 04/04/20 22:07 Dose: 20 mg Documented by: Loperamide HCl (Loperamide Hcl 2 Mg Cap) 2 mg PO Q3H PRN PRN Reason: Diarrhea Stop: 05/04/20 10:45 Last Admin: 04/05/20 13:33 Dose: 2 mg Documented by: Metronidazole (Metronidazole 500 Mg Tab) 500 mg PO BID JOSE ANTONIO Stop: 04/14/20 11:59 Last Admin: 04/05/20 13:33 Dose: 500 mg Documented by: Ondansetron HCl (Ondansetron Inj 2 Mg/Ml 2 Ml Vial) 4 mg IV Q6H PRN PRN Reason: Nausea Stop: 05/03/20 04:57 Last Admin: 04/05/20 15:00 Dose: 4 mg Documented by: Pantoprazole Sodium (Pantoprazole 40 Mg Tab) 40 mg PO DAILY JOSE ANTONIO Stop: 05/03/20 08:59 Last Admin: 04/05/20 07:02 Dose: 40 mg Documented by: PG Care Time/CCT Total # of Minutes Spent Total Time Spent with Patient: Total time spent is greater than 50% in coordination of care (as documented) at patient's floor/unit and/or counseling patient: Coding Level of Care Code 63972 Subseq Hosp Care Lvl 2 Diagnoses Hypokalemia E87.6 Diarrhea R19.7 Diarrhea type: unspecified type Fracture of proximal phalanx of right great toe S92.414A Encounter type: initial encounter Fracture alignment: nondisplaced Fracture type: closed S/P gastric surgery Z98.890 Hypotension I95.89; E86.1 Hypotension type: hypotension due to hypovolemia Syncope R55 Syncope type: vasovagal syncope Leukocytosis D72.829 Leukocytosis type: unspecified Elevated d-dimer R79.89 GERD (gastroesophageal reflux disease) K21.9 Esophagitis presence: esophagitis presence not specified Depression F32.9 Depression Type: unspecified (1) Depression Depression Type: unspecified Qualified Code(s): F32.9 - Major depressive disorder, single episode, unspecified (2) Diarrhea Diarrhea type: unspecified type Qualified Code(s): R19.7 - Diarrhea, unspecified (3) Leukocytosis Leukocytosis type: unspecified Qualified Code(s): D72.829 - Elevated white blood cell count, unspecified (4) Syncope Syncope type: vasovagal syncope Qualified Code(s): R55 - Syncope and collapse (5) Fracture of proximal phalanx of right great toe Encounter type: initial encounter Fracture alignment: nondisplaced Fracture type: closed Qualified Code(s): S92.414A - Nondisplaced fracture of proximal phalanx of right great toe, initial encounter for closed fracture (6) GERD (gastroesophageal reflux disease) Esophagitis presence: esophagitis presence not specified Qualified Code(s): K21.9 - Gastro-esophageal reflux disease without esophagitis (7) Hypotension Hypotension type: hypotension due to hypovolemia Qualified Code(s): I95.89 - Other hypotension; E86.1 - Hypovolemia
[2020-04-05] MEDS: metroNIDAZOLE 500 MG TAB PO SCH ×2 (13:33→20:52)
[2020-04-05] MEDS: CIPROFLOXACIN 500 MG TAB PO SCH ×2 (13:33→20:52)
[2020-04-05] MEDS: ONDANSETRON INJ 2 MG/ML 2 ML VIAL IV PRN ×2 (15:00→21:01)
[2020-04-05] MEDS: ACETAMINOPHEN 325 MG TAB PO PRN ×2 (15:00→21:01)
[2020-04-05] MEDS ORDERED: OXcarbazepine 150 MG TABLET PO SCH (21:00)
[2020-04-05] MEDS ORDERED: TOPIRAMATE 100 MG TAB PO SCH (21:00)
[2020-04-05] MEDS: ESCITALOPRAM OXALATE 20 MG TAB PO SCH (21:01)
[2020-04-06 07:20] LABS: Hematocrit (blood only) 40.9 % (37-47); Hemoglobin 13.6 g/dL (12.0-16.0); Mean Corpuscular Hemoglobin 29.6 pg (25-34); Mean Corpuscular Hgb Conc 33.3 g/dL (32-36); Mean Corpuscular Volume 88.9 fL (80-100); Mean Platelet Volume 9.2 fL (7.4-10.4); Platelet Count 228 K/uL (130-400); RDW Coefficient of Variation 13.6 % (11.5-14.5); RDW Standard Deviation 44.2 fL (36.4-46.3); White Blood Count 8.66 K/uL (4.8-10.8)
[2020-04-06 07:46] LABS: BUN Creatinine Ratio 18.2 (10-20); Calcium 9.2 mg/dl (8.5-10.1); Creatinine Clr Calc Pharmacy 126.3 ml/min; Est GFR (African American) 123.4; Est GFR (Non-African American) 106.5; Magnesium 2.3 mg/dl (1.8-2.4); Potassium 3.7 mmol/L (3.5-5.1)
[2020-04-06 07:52] LABS: Phosphorus 4.8 mg/dl (2.5-4.9)
[2020-04-06] MEDS: CIPROFLOXACIN 500 MG TAB PO SCH ×2 (07:56→08:07)
[2020-04-06] MEDS: PANTOprazole 40 MG TAB PO SCH (07:56)
[2020-04-06] MEDS: metroNIDAZOLE 500 MG TAB PO SCH (07:57)
[2020-04-06] MEDS: ACETAMINOPHEN 325 MG TAB PO PRN (10:24)
[2020-04-06] MEDS ORDERED: PSYLLIUM 58.6% POWDER PACKET PO SCH (12:00)
[2020-04-07] MEDS ORDERED: POTASSIUM CHLORIDE CRTAB 20 MEQ TABCR PO SCH (09:00)
== END 2020-04-06 17:20 | disposition home or self-care (01) | DRG 316 ==
LOC: ED 22:48 → 2W 22:48 → SUATTDRO 04-03 04:54